=== PATIENT | female | born 1960 | race Caucasian/White ===

== ENCOUNTER 2024-07-17 20:12 | Emergency (ER) | payer BC, SELFPAY ==
[2024-07-17 20:14] VITALS: BP 152/82; PULSE 83; RESP 16; TEMP 36.6; O2SAT 100
--- OUTSIDE RECORDS SUMMARY | 2024-07-17 20:14 | XMS_ITS | Encounter Summary ---
Author Organization [facility] Address [address] [place] [address] Care Team Providers Care Claim Processing Specialist Name Role Phone Isaias Baugh MD Primary Care Provider [phone] Encounter Details Date Type Department Care Team (Latest Contact Info) Description 02/04/2006 Outpatient Historical HIS [facility] MIGEL Lockhart, Sher Brown MD NO ADDRESS ON FILE Screening Mammogram for High-Risk Patient (Primary Dx) Social History Tobacco Use Types Packs/Day Years Used Date Smoking Tobacco: Never Assessed Comments Unknown Sex and Gender Information Value Date Recorded Sex Assigned at Not on file Legal Sex Female 5:06 AM SPINNER CONCRETE PIPE Gender Identity Not on file Sexual Orientation Not on file documented as of this encounter Plan of Treatment Upcoming Encounters Date Type Department Care Team (Late st Contact Info) Description 04/07/2025 9:20 AM SPINNER CONCRETE PIPE Office Visit [facility] Primary Care [address] [place] [address] [place] [address] [address] documented as of this encounter Visit Diagnoses Diagnosis Screening mammogram for high-risk patient- Primary documented in this encounter Care Teams Claim Processing Specialist Relationship Specialty Start Date End Date Isaias Baugh MD PCP - General Internal Medicine 08/16/14 documented as of this encounter
--- OUTSIDE RECORDS SUMMARY | 2024-07-17 20:14 | XMS_ITS | Encounter Summary ---
Author Organization [facility] Address [address] [place] [address] Care Team Providers Care Pot Puller Name Role Phone Isaias Baugh MD Primary Care Provider [phone] Encounter Details Date Type Department Care Team (Late st Contact Info) Description 11/18/2004 Outpatient Historical [facility] LABORATORY CHEMIST - [facility] [address] [employer] [facility] [employer] [facility] [address] [place] [address] Jose Mercer MD [address] [place], [place] [id number] Social History Tobacco Use Types Packs/Day Years Used Date Smoking Tobacco: Never Assessed Comments Unknown Sex and Gender Information Value Date Recorded Sex Assigned at Not on file Legal Sex Female 5:06 AM MICROSYSTEMS ENGINEER Gender Identity Not on file Sexual Orientation Not on file documented as of this encounter Plan of Treatment Upcoming Encounters Date Type Department Care Team (Late st Contact Info) Description 04/07/2025 9:20 AM MICROSYSTEMS ENGINEER Office Visit [facility] Primary Care [facility] [address] [facility] [address] [place] [address] [place] [address] [facility] [address] [place], [place] [address] documented as of this encounter Visit Diagnoses Not on filedocumented in this encounter Care Teams Pot Puller Relationship Specialty Start Date End Date Isaias Baugh MD PCP - General Internal Medicine 08/16/14 documented as of this encounter
--- OUTSIDE RECORDS SUMMARY | 2024-07-17 20:14 | XMS_ITS | Encounter Summary ---
Author Organization [facility] Address [address] [place] [address] Care Team Providers Care Mental Health Advanced Practice Nurse Name Role Phone Isaias Baugh MD Primary Care Provider [phone] Encounter Details Date Type Department Care Team (Late st Contact Info) Description 03/16/1998 Outpatient Historical [facility] [address] [facility] [address] [place] [address] Sher Lockhart MD NO ADDRESS ON FILE Social History Tobacco Use Types Packs/Day Years Used Date Smoking Tobacco: Never Assessed Comments Unknown Sex and Gender Information Value Date Recorded Sex Assigned at Not on file Legal Sex Female 5:06 AM [facility]IAL [facility] Gender Identity Not on file Sexual Orientation Not on file documented as of this encounter Plan of Treatment Upcoming Encounters Date Type Department Care Team (Late st Contact Info) Description 04/07/2025 9:20 AM MEMORIAL [facility]ON Office Visit [facility] [address] [facility] [address] [place] [address] [place] [address] [facility] [address] [place] [address] documented as of this encounter Visit Diagnoses Not on filedocumented in this encounter Care Teams Mental Health Advanced Practice Nurse Relationship Specialty Start Date End Date Isaias Baugh MD PCP - General Internal Medicine 08/16/14 documented as of this encounter
--- OUTSIDE RECORDS SUMMARY | 2024-07-17 20:14 | XMS_ITS | Encounter Summary ---
Author Organization [facility] Address [address] [place] [address] Care Team Providers Care Groundman/Lineman Name Role Phone Isaias Baugh MD Primary Care Provider [phone] Encounter Details Date Type Department Care Team (Late st Contact Info) Description 03/08/1999 Outpatient Historical [facility] [address] [facility] [address] [place] [address] Sher Lockhart MD NO ADDRESS ON FILE Social History Tobacco Use Types Packs/Day Years Used Date Smoking Tobacco: Never Assessed Comments Unknown Sex and Gender Information Value Date Recorded Sex Assigned at Not on file Legal Sex Female 5:06 AM METHANE GAS COLLECTION SYSTEM OPERATOR Gender Identity Not on file Sexual Orientation Not on file documented as of this encounter Plan of Treatment Upcoming Encounters Date Type Department Care Team (Late st Contact Info) Description 04/07/2025 9:20 AM METHANE GAS COLLECTION SYSTEM OPERATOR Office Visit [facility] [address] [facility] [address] [place] [address] [place] [address] [facility] [address] [place] [address] documented as of this encounter Visit Diagnoses Not on filedocumented in this encounter Care Teams Groundman/Lineman Relationship Specialty Start Date End Date Isaias Baugh MD PCP - General Internal Medicine 08/16/14 documented as of this encounter
--- OUTSIDE RECORDS SUMMARY | 2024-07-17 20:15 | XMS_ITS | Encounter Summary ---
Author Organization [facility] Address [address] [place] [address] Care Team Providers Care Director Of Field Coordination Name Role Phone Isaias Baugh MD Primary Care Provider [phone] Encounter Details Date Type Department Care Team (Latest Contact Info) Description 09/24/2000 Outpatient Historical HIS [facility] MIGEL Lockhart, Sher Brown MD NO ADDRESS ON FILE Lump or mass in breast (Primary Dx) Social History Tobacco Use Types Packs/Day Years Used Date Smoking Tobacco: Never Assessed Comments Unknown Sex and Gender Information Value Date Recorded Sex Assigned at Not on file Legal Sex Female 5:06 AM CARE AIDE Gender Identity Not on file Sexual Orientation Not on file documented as of this encounter Plan of Treatment Upcoming Encounters Date Type Department Care Team (Late st Contact Info) Description 04/07/2025 9:20 AM CARE AIDE Office Visit [facility] Primary Care [address] [place] [address] [place] [address] [address] documented as of this encounter Visit Diagnoses Diagnosis Lump or mass in breast- Primary documented in this encounter Care Teams Director Of Field Coordination Relationship Specialty Start Date End Date Isaias Baugh MD PCP - General Internal Medicine 08/16/14 documented as of this encounter
--- OUTSIDE RECORDS SUMMARY | 2024-07-17 20:15 | XMS_ITS | Encounter Summary ---
Author Organization [facility] Address [address] [place] [address] Care Team Providers Care Gun Stock Maker Name Role Phone Isaias Baugh MD Primary Care Provider [phone] Encounter Details Date Type Department Care Team (Latest Contact Info) Description 01/22/2004 Outpatient Historical [facility] Ish Saavedra MD [address] [facility] [address] [address] DIFFUS CYSTIC MASTOPATHY (Primary Dx) Social History Tobacco Use Types Packs/Day Years Used Date Smoking Tobacco: Never Assessed Comments Unknown Sex and Gender Information Value Date Recorded Sex Assigned at Not on file Legal Sex Female 5:06 AM EXECUTIVE BUSINESS COACH Gender Identity Not on file Sexual Orientation Not on file documented as of this encounter Plan of Treatment Upcoming Encounters Date Type Department Care Team (Late st Contact Info) Description 04/07/2025 9:20 AM EXECUTIVE BUSINESS COACH Office Visit [facility] Primary Care [address] [place] [address] [place] [address] [facility] [address] [place] [address] documented as of this encounter Visit Diagnoses Diagnosis Diffuse cystic mastopathy- Primary documented in this encounter Care Teams Gun Stock Maker Relationship Specialty Start Date End Date Isaias Baugh MD PCP - General Internal Medicine 08/16/14 documented as of this encounter
--- OUTSIDE RECORDS SUMMARY | 2024-07-17 20:15 | XMS_ITS | Encounter Summary ---
Author Organization [facility] Address [address] [place] [address] Care Team Providers Care Public Speaking Instructor Name Role Phone Isaias Baugh MD Primary Care Provider [phone] Encounter Details Date Type Department Care Team (Latest Contact Info) Description 10/01/2000 Inpatient Historical HIS [facility] Tim Phillips MD NO ADDRESS ON FILE Nithya Rome MD NO ADDRESS ON FILE Diffuse cystic mastopathy (Primary Dx) Social History Tobacco Use Types Packs/Day Years Used Date Smoking Tobacco: Never Assessed Comments Unknown Sex and Gender Information Value Date Recorded Sex Assigned at Not on file Legal Sex Female 5:06 AM SUPERVISOR PULLET FARM Gender Identity Not on file Sexual Orientation Not on file documented as of this encounter Plan of Treatment Upcoming Encounters Date Type Department Care Team (Late st Contact Info) Description 04/07/2025 9:20 AM SUPERVISOR PULLET FARM Office Visit [facility] Primary Care [address] [place] [address] [place] [address] [address] documented as of this encounter Visit Diagnoses Diagnosis Diffuse cystic mastopathy- Primary documented in this encounter Care Teams Public Speaking Instructor Relationship Specialty Start Date End Date Isaias Baugh MD PCP - General Internal Medicine 08/16/14 documented as of this encounter
--- OUTSIDE RECORDS SUMMARY | 2024-07-17 20:15 | XMS_ITS | Encounter Summary ---
Author Organization [facility] Address [address] [place] [address] Care Team Providers Care Playroom Attendant Name Role Phone Isaias Baugh MD Primary Care Provider [phone] Encounter Details Date Type Department Care Team (Late st Contact Info) Description 09/16/2000 Outpatient Historical [facility] [address] [facility] [address] [place] [address] Sher Lockhart MD NO ADDRESS ON FILE Social History Tobacco Use Types Packs/Day Years Used Date Smoking Tobacco: Never Assessed Comments Unknown Sex and Gender Information Value Date Recorded Sex Assigned at Not on file Legal Sex Female 5:06 AM WOOD PREPARATION SUPERVISOR Gender Identity Not on file Sexual Orientation Not on file documented as of this encounter Plan of Treatment Upcoming Encounters Date Type Department Care Team (Late st Contact Info) Description 04/07/2025 9:20 AM WOOD PREPARATION SUPERVISOR Office Visit [facility] [address] [facility] [address] [place] [address] [place] [address] [facility] [address] [place] [address] documented as of this encounter Visit Diagnoses Not on filedocumented in this encounter Care Teams Playroom Attendant Relationship Specialty Start Date End Date Isaias Baugh MD PCP - General Internal Medicine 08/16/14 documented as of this encounter
--- OUTSIDE RECORDS SUMMARY | 2024-07-17 20:15 | XMS_ITS | Encounter Summary ---
Author Organization [facility] Address [address] [place] [address] Care Team Providers Care Carpenter Helper Name Role Phone Isaias Baugh MD Primary Care Provider [phone] Encounter Details Date Type Department Care Team (Late st Contact Info) Description 12/06/2002 Outpatient Historical [facility] - [place] [address] [place] [address] Sher Lockhart MD NO ADDRESS ON FILE Social History Tobacco Use Types Packs/Day Years Used Date Smoking Tobacco: Never Assessed Comments Unknown Sex and Gender Information Value Date Recorded Sex Assigned at Not on file Legal Sex Female 5:06 AM WARRANTY COORDINATOR Gender Identity Not on file Sexual Orientation Not on file documented as of this encounter Plan of Treatment Upcoming Encounters Date Type Department Care Team (Late st Contact Info) Description 04/07/2025 9:20 AM WARRANTY COORDINATOR Office Visit [facility] Primary Care [address] [place] [address] [place] [address] [address] documented as of this encounter Visit Diagnoses Not on filedocumented in this encounter Care Teams Carpenter Helper Relationship Specialty Start Date End Date Isaias Baugh MD PCP - General Internal Medicine 08/16/14 documented as of this encounter
--- OUTSIDE RECORDS SUMMARY | 2024-07-17 20:15 | XMS_ITS | Encounter Summary ---
Author Organization [facility] Address [address] [place] [address] Care Team Providers Care Die Repairer Stamping Name Role Phone Isaias Baugh MD Primary Care Provider [phone] Encounter Details Date Type Department Care Team (Late st Contact Info) Description 08/14/2003 Outpatient Historical [facility] CONTROL AREA OPERATOR - [facility] [address] [facility] [address] [place] [address] Jose Mercer MD [address] [place], [place] [address] Social History Tobacco Use Types Packs/Day Years Used Date Smoking Tobacco: Never Assessed Comments Unknown Sex and Gender Information Value Date Recorded Sex Assigned at Not on file Legal Sex Female 5:06 AM TRANSFORMER TESTER Gender Identity Not on file Sexual Orientation Not on file documented as of this encounter Plan of Treatment Upcoming Encounters Date Type Department Care Team (Late st Contact Info) Description 04/07/2025 9:20 AM TRANSFORMER TESTER Office Visit [facility] Primary Care [facility] [address] [facility] [address] [place] [address] [place] [address] [facility] [address] [place], [place] [address] documented as of this encounter Visit Diagnoses Not on filedocumented in this encounter Care Teams Die Repairer Stamping Relationship Specialty Start Date End Date Isaias Baugh MD PCP - General Internal Medicine 08/16/14 documented as of this encounter
--- OUTSIDE RECORDS SUMMARY | 2024-07-17 20:15 | XMS_ITS | Encounter Summary ---
Author Organization [facility] Address [address] [place] [address] Care Team Providers Care Information Lead Name Role Phone Isaias Baugh MD Primary Care Provider [phone] Encounter Details Date Type Department Care Team (Late st Contact Info) Description 12/06/2002 Outpatient Historical [facility] Internal Medicine - [place] [address] [place] [address] Sher Lockhart MD NO ADDRESS ON FILE Social History Tobacco Use Types Packs/Day Years Used Date Smoking Tobacco: Never Assessed Comments Unknown Sex and Gender Information Value Date Recorded Sex Assigned at Not on file Legal Sex Female 5:06 AM BLINDSTITCH LAPEL PADDER Gender Identity Not on file Sexual Orientation Not on file documented as of this encounter Plan of Treatment Upcoming Encounters Date Type Department Care Team (Late st Contact Info) Description 04/07/2025 9:20 AM BLINDSTITCH LAPEL PADDER Office Visit [facility] Primary Care [address] [place] [address] [place] [address] [address] documented as of this encounter Visit Diagnoses Not on filedocumented in this encounter Care Teams Information Lead Relationship Specialty Start Date End Date Isaias Baugh MD PCP - General Internal Medicine 08/16/14 documented as of this encounter
--- OUTSIDE RECORDS SUMMARY | 2024-07-17 20:15 | XMS_ITS | Encounter Summary ---
Author Organization [facility] Address [address] [place] [address] Care Team Providers Care Youtuber Name Role Phone Isaias Baugh MD Primary Care Provider [phone] Encounter Details Date Type Department Care Team (Late st Contact Info) Description 12/23/2000 Outpatient Historical [facility] [address] [facility] [address] [place] [address] Sher Lockhart MD NO ADDRESS ON FILE Social History Tobacco Use Types Packs/Day Years Used Date Smoking Tobacco: Never Assessed Comments Unknown Sex and Gender Information Value Date Recorded Sex Assigned at Not on file Legal Sex Female 5:06 AM SFDC ARCHITECT Gender Identity Not on file Sexual Orientation Not on file documented as of this encounter Plan of Treatment Upcoming Encounters Date Type Department Care Team (Late st Contact Info) Description 04/07/2025 9:20 AM SFDC ARCHITECT Office Visit [facility] [address] [facility] [address] [place] [address] [place] [address] [facility] [address] [place] [address] documented as of this encounter Visit Diagnoses Not on filedocumented in this encounter Care Teams Youtuber Relationship Specialty Start Date End Date Isaias Baugh MD PCP - General Internal Medicine 08/16/14 documented as of this encounter
--- OUTSIDE RECORDS SUMMARY | 2024-07-17 20:15 | XMS_ITS | Encounter Summary ---
Author Organization [facility] Address [address] [place] [address] Care Team Providers Care Binder Cutter Name Role Phone Isaias Baugh MD Primary Care Provider [phone] Encounter Details Date Type Department Care Team (Latest Contact Info) Description 08/15/2008 Outpatient Historical HIS [facility] Rose Lockhart MD NO ADDRESS ON FILE Other Screening Mammogram Social History Tobacco Use Types Packs/Day Years Used Date Smoking Tobacco: Never Assessed Comments Unknown Sex and Gender Information Value Date Recorded Sex Assigned at Not on file Legal Sex Female 5:06 AM LACQUER SPRAYER Gender Identity Not on file Sexual Orientation Not on file documented as of this encounter Plan of Treatment Upcoming Encounters Date Type Department Care Team (Late st Contact Info) Description 04/07/2025 9:20 AM LACQUER SPRAYER Office Visit [facility] Primary Care [address] [place] [address] [place] [address] [address] documented as of this encounter Procedures Procedure Name Priority Date/Time Associated Diagnosis Comments MAMMO SCREEN BILAT W OR WO CAD Routine 08/15/2008 11:12 AM CDT documented in this encounter Results * MAMMO DIGITAL SCREEN BILAT (08/15/2008 11:12 AM CDT) Anatomical Region Laterality Modality Breast Bilateral Other 08/15/2008 11:1 2 AM CDT Narrative 08/18/2008 5:18 PM CDT [place] [address] [address] [place], [place] [address] Admit Date: 08/15/2008 RAY VIRK Sex: F Admit Prov: ROSE LOCKHART Date: 1960 Primary Care Prov: ROSE LOCKHART CMRN: [id number] [id number] [facility] Ordering Prov: ROSE LOCKHART Accession Number: [id number] Interpretation BILATERAL FULL FIELD DIGITAL SCREENING MAMMOGRAM WITH CAD. History: Routine Screening. Technique: Full field digital craniocaudal and mediolateral oblique projections of both breasts were obtained. Computer aided diagnosis was performed. Comparison: 07/2007, 01/2006, 12/2003 Breast Parenchymal Composition: Heterogeneously dense, which lowers the sensitivity of mammography. Findings: No suspicious mass, suspicious microcalcifications, or architectural distortion in either breast is identified. Since the prior study, there has been no significant interval change. The computer aided diagnosis detects no significant abnormality. Overall Assessment: BI-RADS category 1: Negative. IMPRESSION: Annual mammography is recommended. Assessment BIRADS: 1-Negative Recommendation: Normal interval follow-up Dictated by: LUANA HAYNES Electronically signed by: LUANA HAYNES 08/18/2008 17:17 Transcribed: 08/18/2008 15:19 AMK Procedure Note Luana Haynes - 08/18/2008 [place] [address] [place], [place] [address] Admit Date: 08/15/2008 RAY VIRK Sex: F Admit Prov: ROSE LOCKHART Date: 1960 Primary Care Prov: ROSE LOCKHART CMRN: [id number] [id number] IM[facility]ING SERVICES Ordering Prov: ROSE LOCKHART Interpretation BILATERAL FULL FIELD DIGITAL SCREENING MAMMOGRAM WITH CAD. History: Routine Screening. Technique: Full field digital craniocaudal and mediolateral oblique projections of both breasts were obtained. Computer aided diagnosiswas performed. Comparison: 07/2007, 01/2006, 12/2003 Breast Parenchymal Composition: Heterogeneously dense, which lowersthe sensitivity of mammography. Findings: No suspicious mass, suspicious microcalcifications, or architectural distortion in either breast is identified. Since theprior study, there has been no significant interval change. The computeraided diagnosis detects no significant abnormality. Overall Assessment: BI-RADS category 1: Negative. IMPRESSION: Annual mammography is recommended. Assessment BIRADS: 1-Negative Recommendation: Normal interval follow-up Dictated by: LUANA HAYNES Electronically signed by: LUANA HAYNES 08/18/2008 17:17 Transcribed: 08/18/2008 15:19 AMK Rose Lockhart MD MAMMO ORDERABLES Final Result documented in this encounter Visit Diagnoses Diagnosis Other screening mammogram documented in this encounter Care Teams Binder Cutter Relationship Specialty Start Date End Date Isaias Baugh MD PCP - General Internal Medicine 08/16/14 documented as of this encounter
--- OUTSIDE RECORDS SUMMARY | 2024-07-17 20:15 | XMS_ITS | Encounter Summary ---
Author Organization [facility] Address [address] [place] [address] Care Team Providers Care Tariff Expert Name Role Phone Isaias Baugh MD Primary Care Provider [phone] Encounter Details Date Type Department Care Team (Latest Contact Info) Description 12/24/2002 Outpatient Historical HIS [facility] MIGEL Lockhart, Sher Brown MD NO ADDRESS ON FILE SCREENING MAMM-MALIG NEOPL-HI RISK (Primary Dx) Social History Tobacco Use Types Packs/Day Years Used Date Smoking Tobacco: Never Assessed Comments Unknown Sex and Gender Information Value Date Recorded Sex Assigned at Not on file Legal Sex Female 5:06 AM STRUCTURAL WELDER Gender Identity Not on file Sexual Orientation Not on file documented as of this encounter Plan of Treatment Upcoming Encounters Date Type Department Care Team (Late st Contact Info) Description 04/07/2025 9:20 AM STRUCTURAL WELDER Office Visit [facility] Primary Care [address] [place] [address] [place] [address] [address] documented as of this encounter Visit Diagnoses Diagnosis Screening mammogram for high-risk patient- Primary documented in this encounter Care Teams Tariff Expert Relationship Specialty Start Date End Date Isaias Baugh MD PCP - General Internal Medicine 08/16/14 documented as of this encounter
--- OUTSIDE RECORDS SUMMARY | 2024-07-17 20:15 | XMS_ITS | Encounter Summary ---
Author Organization [facility] Address [address] [place] [address] Care Team Providers Care Orthotics Assistant Name Role Phone Isaias Baugh MD Primary Care Provider [phone] Encounter Details Date Type Department Care Team (Latest Contact Info) Description 12/30/2003 Outpatient Historical [facility] MIGEL Lockhart, Sher Brown MD NO ADDRESS ON FILE SCREENING MAMM-MAILG NEOPL-OTHER (Primary Dx) Social History Tobacco Use Types Packs/Day Years Used Date Smoking Tobacco: Never Assessed Comments Unknown Sex and Gender Information Value Date Recorded Sex Assigned at Not on file Legal Sex Female 5:06 AM WIRE ROLLER Gender Identity Not on file Sexual Orientation Not on file documented as of this encounter Plan of Treatment Upcoming Encounters Date Type Department Care Team (Late st Contact Info) Description 04/07/2025 9:20 AM WIRE ROLLER Office Visit [facility] Primary Care [address] [place] [address] [place] [address] [address] documented as of this encounter Visit Diagnoses Diagnosis Other screening mammogram- Primary documented in this encounter Care Teams Orthotics Assistant Relationship Specialty Start Date End Date Isaias Baugh MD PCP - General Internal Medicine 08/16/14 documented as of this encounter
--- OUTSIDE RECORDS SUMMARY | 2024-07-17 20:15 | XMS_ITS | Encounter Summary ---
Author Organization [facility] Address 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 Gender Identity Not on file Sexual Orientation Not on file documented as of this encounter Plan of Treatment Upcoming Encounters Date Type Department Care Team (Late st Contact Info) Description 04/07/2025 9:20 AM SENIOR GRAPHIC DESIGNER Office Visit [facility] Primary Care [address] [place] [address] [place] [address] [address] documented as of this encounter Procedures Procedure Name Priority Date/Time Associated Diagnosis Comments MAMMO SCREEN BILAT W OR WO CAD Routine 07/28/2007 1:36 PM CDT documented in this encounter Results * MAMMO DIGITAL SCREEN BILAT (07/28/2007 1:36 PM CDT) Anatomical Region Laterality Modality Breast Bilateral Other 07/28/2007 1:36 PM CDT Narrative 07/29/2007 8:36 PM CDT [address] [address] Admit Date: 07/28/2007 RAY VIRK Sex: F Admit Prov: ROSE LOCKHART Date: 1960 Primary Care Prov: ROSE LOCKHART CMRN: [id number] [id number] [facility]ING SERVICES Ordering Prov: ROSE LOCKHART Accession Number: [id number] Interpretation BILATERAL SCREENING DIGITAL MAMMOGRAMS WITH COMPUTER ASSISTED DIAGNOSIS 07/28/07 Findings: The parenchyma is moderately dense bilaterally. There is no mass, malignant calcification, lymphadenopathy or other sign of malignancy. No change since 01/2006. The films were reviewed using the CAD system. Summary: No mammographic evidence of malignancy. Assessment BIRADS: 1-Negative Recommendation: Normal interval follow-up Dictated by: TIM ZAMARRIPA Electronically signed by: TIM ZAMARRIPA 07/29/2007 20:36 Transcribed: 07/29/2007 18:47 AMK Procedure Note Tim Zamarripa MD - 07/29/2007 [address] [place], [place] [address] Admit Date: 07/28/2007 RAY VIRK Sex: F Admit Prov: ROSE LOCKHART Date: 1960 Primary Care Prov: ROSE LOCKHART CMRN: [id number] [facility] [id number] IM[facility]ING SERVICES Ordering Prov: ROSE LOCKHART Interpretation BILATERAL SCREENING DIGITAL MAMMOGRAMS WITH COMPUTER ASSISTEDDIAGNOSIS 07/28/07 Findings: The parenchyma is moderately dense bilaterally. There isno mass, malignant calcification, lymphadenopathy or other sign ofmalignancy. No change since 01/2006. The films were reviewed using the CADsystem. Summary: No mammographic evidence of malignancy. Assessment BIRADS: 1-Negative Recommendation: Normal interval follow-up Dictated by: TIM ZAMARRIPA Electronically signed by: TIM ZAMARRIPA 07/29/2007 20:36 Transcribed: 07/29/2007 18:47 AMK Rose Lockhart MD MAMMO ORDERABLES Final Result documented in this encounter Visit Diagnoses Diagnosis Other screening mammogram documented in this encounter Care Teams Benzol Still Operator Relationship Specialty Start Date End Date Isaias Baugh MD PCP - General Internal Medicine 08/16/14 documented as of this encounter
--- OUTSIDE RECORDS SUMMARY | 2024-07-17 20:15 | XMS_ITS | Encounter Summary ---
Author Organization [facility] Address 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 Gender Identity Not on file Sexual Orientation Not on file documented as of this encounter Plan of Treatment Upcoming Encounters Date Type Department Care Team (Late st Contact Info) Description 04/07/2025 9:20 AM TOOL AND DIE SUPERVISOR Office Visit [facility] Primary Care [address] [place] [address] [place] [address] [address] documented as of this encounter Visit Diagnoses Diagnosis Other screening mammogram- Primary documented in this encounter Care Teams Pharmacy District Manager Relationship Specialty Start Date End Date Isaias Baugh MD PCP - General Internal Medicine 08/16/14 documented as of this encounter
--- OUTSIDE RECORDS SUMMARY | 2024-07-17 20:15 | XMS_ITS | Encounter Summary ---
Author Organization [facility] Address [address] [place] [address] Care Team Providers Care Family Coach Name Role Phone Isaias Baugh MD Primary Care Provider [phone] Encounter Details Date Type Department Care Team (Late st Contact Info) Description 11/07/2004 Outpatient Historical [facility] Internal Medicine - [place] [address] [place] [address] Sher Lockhart MD NO ADDRESS ON FILE Social History Tobacco Use Types Packs/Day Years Used Date Smoking Tobacco: Never Assessed Comments Unknown Sex and Gender Information Value Date Recorded Sex Assigned at Not on file Legal Sex Female 5:06 AM MOVING 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 Gender Identity Not on file Sexual Orientation Not on file documented as of this encounter Last Filed Vital Signs Vital Sign Reading Time Taken Comments Blood Pressure 136/70 11/07/2004 1:20 PM CDT Pulse - - Temperature 37.1 C (98.8 F) 11/07/2004 1:20 PM CDT Respiratory Rate - - Oxygen Saturation - - Inhaled Oxygen Concentration - - Weight 84.4 kg (186 lb) 11/07/2004 1:20 PM CDT Height - - Body Mass Index - - documented in this encounter Plan of Treatment Upcoming Encounters Date Type Department Care Team (Late st Contact Info) Description 04/07/2025 9:20 AM MOVING PICTURE OPERATOR Office Visit [facility] Primary Care [address] [place] [address] [place] [address] [address] documented as of this encounter Visit Diagnoses Not on filedocumented in this encounter Care Teams Family Coach Relationship Specialty Start Date End Date Isaias Baugh MD PCP - General Internal Medicine 08/16/14 documented as of this encounter
--- OUTSIDE RECORDS SUMMARY | 2024-07-17 20:15 | XMS_ITS | Encounter Summary ---
Author Organization [facility] Address [address] [place] [address] Care Team Providers Care Replenisher Name Role Phone Isaias Baugh MD Primary Care Provider [phone] Encounter Details Date Type Department Care Team (Late st Contact Info) Description 04/30/2001 Outpatient Historical [facility] [address] [facility] [address] [place] [address] Sher Lockhart MD NO ADDRESS ON FILE Social History Tobacco Use Types Packs/Day Years Used Date Smoking Tobacco: Never Assessed Comments Unknown Sex and Gender Information Value Date Recorded Sex Assigned at Not on file Legal Sex Female 5:06 AM BLACKSMITH SUPERVISOR Gender Identity Not on file Sexual Orientation Not on file documented as of this encounter Plan of Treatment Upcoming Encounters Date Type Department Care Team (Late st Contact Info) Description 04/07/2025 9:20 AM BLACKSMITH SUPERVISOR Office Visit [facility] Care [facility] [address] [facility] [address] [place] [address] [place] [address] [facility] [address] [place] [address] documented as of this encounter Visit Diagnoses Not on filedocumented in this encounter Care Teams Replenisher Relationship Specialty Start Date End Date Isaias Baugh MD PCP - General Internal Medicine 08/16/14 documented as of this encounter
--- OUTSIDE RECORDS SUMMARY | 2024-07-17 20:15 | XMS_ITS | Encounter Summary ---
Author Organization [facility] Address [address] [place] [address] Care Team Providers Care Connection Worker Name Role Phone Isaias Bauhg MD Primary Care Provider [phone] Encounter Details Date Type Department Care Team (Late st Contact Info) Description 10/16/2000 Outpatient Historical [facility] [address] [facility] [address] [place] [address] Sher Lockhart MD NO ADDRESS ON FILE Social History Tobacco Use Types Packs/Day Years Used Date Smoking Tobacco: Never Assessed Comments Unknown Sex and Gender Information Value Date Recorded Sex Assigned at Not on file Legal Sex Female 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 Gender Identity Not on file Sexual Orientation Not on file documented as of this encounter Plan of Treatment Upcoming Encounters Date Type Department Care Team (Late st Contact Info) Description 04/07/2025 9:20 AM CHIEF 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 Office Visit [facility] [address] [facility] [address] [place] [phone] [place] [address] [facility] [address] [place] [address] documented as of this encounter Visit Diagnoses Not on filedocumented in this encounter Care Teams Connection Worker Relationship Specialty Start Date End Date Isaias Baugh MD PCP - General Internal Medicine 08/16/14 documented as of this encounter
--- OUTSIDE RECORDS SUMMARY | 2024-07-17 20:15 | XMS_ITS | Encounter Summary ---
Author Organization [facility] Address [address] [place] [address] Care Team Providers Care Rig Manager Name Role Phone Isaias Baugh MD Primary Care Provider [phone] Encounter Details Date Type Department Care Team (Late st Contact Info) Description 06/04/1999 Outpatient Historical [facility] [address] [facility] [address] [place] [address] Sher Lockhart MD NO ADDRESS ON FILE Social History Tobacco Use Types Packs/Day Years Used Date Smoking Tobacco: Never Assessed Comments Unknown Sex and Gender Information Value Date Recorded Sex Assigned at Not on file Legal Sex Female 5: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 [address] [place] [address] [place] [address] [facility] [address] [place] [address] documented as of this encounter Visit Diagnoses Not on filedocumented in this encounter Care Teams Rig Manager Relationship Specialty Start Date End Date Isaias Baugh MD PCP - General Internal Medicine 08/16/14 documented as of this encounter
--- OUTSIDE RECORDS SUMMARY | 2024-07-17 20:15 | XMS_ITS | Clinical Summary ---
Author Organization [facility] eres Address [address] [place] [address] Care Team Providers Care Rn Recovery Name Role Phone Isaias Baugh MD Primary Care Provider [phone] Allergies Active Allergy Reactions Criticality Noted Date Comments Codeine Nausea and Vomiting Low 09/06/2014 Morphine Nausea and Vomiting Low 12/06/2002 Penicillins Diarrhea Low 12/06/2002 Wool Itching Low 05/23/2019 Medications 0mega-3 fatty acids-vitamin E (FISH OIL) 1,000 mg Oral Cap Take 1,000 mg by mouth daily. Active multivitamin (DAILY-VALDO) Oral Tab Take 1 Tab by mouth daily. Active Active Problems Patient Care Coordination No te Formatting of this note migh t be different from the original. OCCUPATIONAL THERAPY ASSISTANT->DR WATKINS ENDO->DR ROMANO GI->DR MORENO->DR SMITH Problem Noted Date Diagnosed Date Positive colorectal cancer screening using Colog uard test 02/15/2023 Subclinical hyperthyroidism 01/24/2016 Overview (02/02/2023): 01/10 TSH 0.12->- PLAN CONT'D MONITORING 03/12 FT4 NL PER OCCUPATIONAL THERAPY ASSISTANT 02/10 TSH 0.23->- PLAN CONT'D MONITORING 03/15 TSH 0.14 03/17 TSH 0.28 02/16 TSH 0.08 B12 deficiency 10/01/2014 Overview (03/01/2019): 10/09 B12 LOW-NL (335)->- PLAN CONT'D MONITORING 01/10 B12 LOW-NL (341)->- PLAN CONT'D MONITORING 03/15 B12 320 Screen for colon cancer 09/06/2014 Overview (04/07/2024): 03/09 CSCOPE NL->NEXT 03/19 02/16 COLOGUARD POS->ARR CSCOPE 03/19 CSCOPE NL X PLASTIC->NEXT Multiple thyroid nodules 09/06/2014 Overview (03/04/2021): ENDO (JUAN ANTONIO) MANAGING -- LAST OV 06/16 08/09 THYROID US->Overall, the appearance is similar to previous examination, 08/23/2013. 06/16 FNA BENIGN Varicose vein 09/06/2014 Overview (09/06/2014): 09/08 PT DECLINES VASC SURG AT THIS TIME Rosacea 01/14/2013 Overview (09/06/2014): DERM (MAR) MANAGING Resolved Problems Problem Noted Date Diagnosed Date Resolved Date Prediabetes 03/01/2019 02/02/2023 Overview (03/01/2021): FBS -- 03/15 102 -- 03/17 112 Impaired fasting blood sugar 01/24/2016 02/21/2017 Overview (02/21/2017): FBS -- 01/10 104 -- 02/10 99 A1C 02/10 4.9 Hyperlipidemia 10/01/2014 01/24/2016 Overview (01/24/2016): 10/09 TOTAL 162 - LDL 110 - HDL 35 - TG 85 01/10 [id number] Screening for diabetes mellitus 09/06/2014 10/01/2014 Overview (10/01/2014): 10/09 FBS NL Screening for endocrine, met abolic and immunity disorder 09/06/2014 10/01/2014 Overview (10/01/2014): 10/09 VIT D 25-OH NL (33) Screening for other and unsp ecified deficiency anemia 09/06/2014 10/01/2014 Overview (09/29/2014): 10/09 CBC NL Screening for nephropathy 09/06/2014 Overview (10/01/2014): GFR -- 10/09 >60 Acute nonsuppurative otitis media, unspecified 11/07/2004 12/26/2008 Anemia, unspecified 05/03/2003 12/27/19 09 Depressive disorder, not elsewhere classified 12/07/19 03 12/26/2008 Other and unspecified hyperlipidemia 12/06/2002 12/26/2008 Encounters Date Type Department Care Team Description 07/13/2024 External Device Data STL ABSTRACTION Provider, Abstract 07/05/2024 External Device Data STL ABSTRACTION Provider, Abstract 07/05/2024 External Device Data STL ABSTRACTION Provider, Abstract 07/04/2024 External Device Data STL ABSTRACTION Provider, Abstract 07/02/2024 External Device Data STL ABSTRACTION Provider, Abstract 07/01/2024 External Device Data STL ABSTRACTION Provider, Abstract 06/28/2024 External Device Data STL ABSTRACTION Provider, Abstract 06/14/2024 External Device Data STL ABSTRACTION Provider, Abstract 05/18/2024 External Device Data STL ABSTRACTION Provider, Abstract 05/17/2024 External Device Data STL ABSTRACTION Provider, Abstract 05/10/2024 External Device Data STL ABSTRACTION Provider, Abstract 05/03/2024 External Device Data STL ABSTRACTION Provider, Abstract from Last 3 Months Immunizations Immunization Administration Dates Next Due (ADACEL/BOOSTRIX)(10 YR UP) TDAP VACCINE, 0.5ML, IM 02/13/2010 (PFIZER)(12 YR UP) COVID-19 VACCINE - EMERGENCY USE AUTHORIZATION, MRNA, [id number](PF) 30 MCG/0.3 ML IM SUSP 09/19/2021,03/19/2021,05/03/2020,2019 (Pfizer Bivalent)(12 Yr Up) COVID-19 Vaccine - Emergency Use Authorization, MRNA, Lnp-S(Pf) 30 Mcg/0.3 Ml Susp 02/06/2022 INFLUENZA VACCINE QUADRIVALE NT 3 YR UP PF IM 01/30/2017 Influenza Seasonal Unspecifi ed Formulation IM 02/06/2021,03/10/2019,02/05/2018,2013 Family History Medical History Relation Name Comments Other Brother paranoid schizo phrenia Heart Disease Father Seizures Maternal Grandmother Breast Cancer Mother 75ish Celiac Disease Mother 75ish Heart Failure Mother 75ish Hypertension Mother 75ish Asthma Paternal Grandmother Hypertension Sister Cancer Neg Hx Colon Cancer Neg Hx Ovarian Cancer Neg Hx Relation Name Status Comments Brother Alive Father Maternal Grandfather Maternal Grandmother Mother 75ish Paternal Grandfather Paternal Grandmother Sister Alive Social History Tobacco Use Types Packs/Day Years Used Date Smoking Tobacco: Former Cigarettes 0.5 15 0 09/06/1977 - 09/06/1992 Passive Smoke Exposure: Never Smokeless Tobacco: Never Tobacco Cessation:Counseling Given: No Alcohol Use Standard Drinks/Week Comments No 0 (1 standard drink = 0.6 oz pur e alcohol) Feeling Safe Answer Date Recorded Are you in a relationship wi th someone who hurts you emotionally and/or physically? No 03/26/2023 Comments No Sex and Gender Information Value Date Recorded Sex Assigned at Not on file Legal Sex Female 5:06 AM BLACKING WHEEL TENDER Gender Identity Not on file Sexual Orientation Not on file Occupation Industry Job Start Date Job End Date Not on file Not on file Not on file Not on file Last Filed Vital Signs Vital Sign Reading Time Taken Comments Blood Pressure 137/76 04/07/2024 2:07 PM BLACKING WHEEL TENDER Pulse 74 04/07/2024 2:07 PM BLACKING WHEEL TENDER Temperature 36.3 C (97.4 F) 03/26/2023 9:11 AM BLACKING WHEEL TENDER Respiratory Rate 16 03/26/2023 9:21 AM BLACKING WHEEL TENDER Oxygen Saturation 99% 04/07/2024 2:07 PM BLACKING WHEEL TENDER Inhaled Oxygen Concentration - - Weight 76.2 kg (168 lb) 04/07/2024 2:07 PM BLACKING WHEEL TENDER Height 175.3 cm (5' 9 ) 04/07/2024 2:07 PM BLACKING WHEEL TENDER Body Mass Index 24.81 04/07/2024 2:07 PM BLACKING WHEEL TENDER Plan of Treatment Upcoming Encounters Date Type Department Care Team (Late st Contact Info) Description 04/07/2025 9:20 AM BLACKING WHEEL TENDER Office Visit [facility] [place] [id number] [place] [id number] [place] [address] [facility] [address] [place] [address] Health Maintenance Due Date Last Done Comments FIT/FOBT Q 1 year 2006 Flex Sig/CT Colonography Q 5 years 2006 ZOSTER VACCINE (1 of 2) 06/28/2011 DTAP/TDAP/TD VACCINES (2 - T d or Tdap) 02/14/2020 02/13/2010 HPV/Cotest 03/26/2021 03/26/2016, 02/28/2013 COVID-19 Vaccine (2023-2 5 season) 2023 02/06/2022, 09/19/2021, 03/19/2021, Additional history exists Preventative Visit- Commercial 04/27/2024 1 06/08/2023, 02/11/2023, 02/02/2023, Additional history exists BREAST CANCER SCREENING 03/22/2025 03/22/20 24, 03/17/2023, 03/13/2022, Additional history exists FIT-DNA Q 3 years 02/09/2026 02/09/2023 CERVICAL CANCER SCREENING 02/11/2026 PAP SMEAR 02/11/2026 02/11/2023, 04/27, 03/26/2016, Additional history exists PAP SMEAR 02/11/2026 02/11/2023, 04/27, 03/26/2016, Additional history exists COLORECTAL SCREENING 03/26/2033 03/26/2023, 03/26/2023, 03/10/2013, Additional history exists Colorectal Cancer Screening 03/26/2033 RSV VACCINE (60+ or ) (1 - 1-dose 75+ series) 2036 INFLUENZA VACCINE Completed 01/28/2024, , 02/05/2023, Additional history exists Procedures Procedure Name Priority Date/Time Associated Diagnosis Comments MAMMO 3D MAURICE SCREEN BILAT W OR WO CAD Routine 03/22/2024 8:23 AM BLACKING WHEEL TENDER Visit for screening mammogram COLONOSCOPY REPORT 03/26/2023 9: 10 AM BLACKING WHEEL TENDER CERV/VAG CYTO AGE BASED SCREEN PAP Routine 02/11/2023 2:20 PM CDT Screening for cervical cancer Encounter for gynecological examination without abnormal finding Well woman exam with routine gynecological exam COLON CANCER SCREEN, STOOL DNA Routine 02/09/2023 12:15 PM CDT Screen for colon cancer CERV/VAG CYTO SCREEN PAP RLFX HPV Routine 03/26/2016 2:02 PM BLACKING WHEEL TENDER Well woman exam with routine gynecological exam from Last 3 Months or Most Recently Relevant to Health Maintenance Results * MAMMO 3D MAURICE SCREEN BILAT W OR WO CAD (03/22/2024 8:23 AM BLACKING WHEEL TENDER) Anatomical Region Laterality Modality Breast Bilateral Mammography 03/22/2024 8:23 AM BLACKING WHEEL TENDER Impressions 03/22/2024 8:55 AM BLACKING WHEEL TENDER IMPRESSION: No mammographic evidence of malignancy in the bilateral breasts. Routine screening mammography is recommended in one year. OVERALL FINAL ASSESSMENT: BI-RADS CATEGORY 1 - Negative DICTATION LOCATION: [facility] Narrative 03/22/2024 8:55 AM BLACKING WHEEL TENDER EXAMINATION: BILATERAL SCREENING DIGITAL MAMMOGRAPHY WITH TOMOSYNTHESIS AND CAD DATE: 03/22/2024 8:23 AM HISTORY: Routine screening mammography. COMPARISON: Mammography with dates ranging from 03/17/2023 to 02/25/2019. TECHNIQUE: A bilateral screening mammogram was performed. Low-dose full-field digital breast tomosynthesis examination was performed with 2D and 3D acquisitions. Examination is read in conjunction with computer aided detection. BREAST COMPOSITION: There are scattered areas of fibroglandular density. FINDINGS: There are no suspicious masses, suspicious calcifications, or other suspicious findings in either breast. There has been no suspicious interval change. Computer aided detection was used in the interpretation of this examination. Procedure Note Chung Musa MD - 03/22/2024 EXAMINATION: BILATERAL SCREENING DIGITAL MAMMOGRAPHY WITH TOMOSYNTHESIS AND CAD DATE: 03/22/2024 8:23 AM HISTORY: Routine screening mammography. COMPARISON: Mammography with dates ranging from 03/17/2023 to 02/25/2019. TECHNIQUE: A bilateral screening mammogram was performed. Low-dose full-field digital breast tomosynthesis examination was performed with 2D and 3D acquisitions. Examination is read in conjunction with computer aided detection. BREAST COMPOSITION: There are scattered areas of fibroglandular density. FINDINGS: There are no suspicious masses, suspicious calcifications, or other suspicious findings in either breast. There has been no suspicious interval change. Computer aided detection was used in the interpretation of this examination. IMPRESSION: No mammographic evidence of malignancy in the bilateral breasts. Routine screening mammography is recommended in one year. OVERALL FINAL ASSESSMENT: BI-RADS CATEGORY 1 - Negative DICTATION LOCATION: [facility] us Kiel Watkins MD MAMMO ORDERABLES Final Result * COLONOSCOPY REPORT (03/26/2023 9:10 AM BLACKING WHEEL TENDER) Narrative Procedure Note Marianne Smith MD - 03/26/2023 9:10 AM CST [facility] Endoscopy Patient Name: Rosie Oropeza Procedure Date: 03/26/2023 Date of : 1960 Age: 62 Attending MD: Marianne Smith MD, Procedure: Colonoscopy Indications: Positive Cologuard test Providers: Marianne Smith MD Referring MD: Isaias Baugh MD Medicines: Monitored Anesthesia Care Procedure: Informed consent was obtained for the procedure, including moderate sedation after risks were discussed. Based on the pre-procedure assessment, including review of the patient's medical history, medications, allergies, and review of systems, the patient was deemed to be an appropriate candidate for sedation. A timeout was performed. Continuous ECG monitoring, pulse oximetry, blood pressure monitoring, and direct observation were performed. The Colonoscope was introduced through the anus and advanced to the terminal ileum. The colonoscopy was performed without difficulty. The patient tolerated the procedure well. The quality of the bowel preparation was good. The terminal ileum, ileocecal valve, appendiceal orifice, and rectum were photographed. Estimated Blood Loss: Estimated blood loss was minimal. Findings: The perianal and digital rectal examinations were normal. The terminal ileum appeared normal. A 6 mm polyp was found in the rectum. The polyp was sessile. The polyp was removed with a cold snare. Resection and retrieval were complete. Two sessile polyps were found in the rectum. The polyps were 3 to 4 mm in size. These polyps were removed with a cold biopsy forceps. Resection and retrieval were complete. The exam was otherwise without abnormality on direct and retroflexion views. Complications: No immediate complications. Impression: - The examined portion of the ileum was normal. - One 6 mm polyp in the rectum, removed with a cold snare. Resected and retrieved. - Two 3 to 4 mm polyps in the rectum, removed with a cold biopsy forceps. Resected and retrieved. - The examination was otherwise normal on direct and retroflexion views. Recommendation: - Patient has a contact number available for emergencies. The signs and symptoms of potential delayed complications were discussed with the patient. Return to normal activities tomorrow. Written discharge instructions were provided to the patient. - Resume previous diet. - Continue present medications. - Await pathology results. - Repeat colonoscopy in 3 years (if adenomatous) for surveillance based on pathology results. Marianne Smith MD 03/26/2023 9:10:04 AM This report has been signed electronically. Number of Addenda: 0 Procedure Date: 03/26/2023 8:35:[id number] [place] [address] Marianne Smith MD GI PROCEDURE ORDERABLES F inal Result * CERV/VAG CYTO AGE BASED SCREEN PAP (02/11/2023 2:20 PM CDT) COMMENT (PAP): [facility] [place] [facility] Comment: This order for age-based cervical cancer and STI screening follows ACOG guidelines(PB 168, 140, JGC700). See individual assays for performing site location. CLINICAL INFORMATION [facility] Comment:None given LAST MENSTRUAL PERIOD [facility] [place] [facility] Comment:NONE GIVEN PREV PAP: [facility] [place] [facility] Comment:NONE GIVEN PREV BX: [facility] [place] Comment:NONE GIVEN SOURCE [facility] [place] Comment:Endocervix ADEQUACY: [facility] [place] [facility] Comment:SATISFACTORY FOR KASANDRA LUATION PAP INTERP [facility] [place] [facility] Comment: Cytology Results: Negative for intraepithelial lesion or malignancy. Atrophic pattern; predominantly parabasal cells COMMENT (PAP TEST) [facility] Comment: This Pap test has been evaluated with computer assisted technology. CREDIT CASHIER: [place] Comment: TMK, CT(ASCP) CT screening location: [place] [address] [place] [address] EXPLANATORY NOTE [facility] Comment: EXPLANATORY NOTE: The Pap is a screening test for cervical cancer. It is not a diagnostic test and is subject to false negative and false positive results. It is most reliable when a satisfactory sample, regularly obtained, is submitted with relevant clinical findings and history, and when the Pap result is evaluated along with historic and current clinical information. HPV E6/E7 Not Detected Not Detected [facility] [place] Comment: Methodology: Press Room Supervisor-Mediated Amplification This assay detects E6/E7 viral messenger RNA (mRNA) from 14 high-risk HPV types (16,18,31,33,35,39,45,51,52,56,58,59,66,68). Cervical sources are required for HPV testing. If a vaginal source from a patient who has had a total hysterectomy with removal of cervix was submitted, please contact the testing laboratory for alternative testing options. For additional information, please refer to http://education.P2i/faq/KKZ784l0 (This link if provided for information/ educational purposes only.) Test Performed at: [facility] [address] [place] [address] Theresa SANTANA Genital SWAB OF ENDOCERVIX / Unknown 02/11/2023 2:20 PM CDT 02/12/2023 3:27 AM CDT Kiel Watkisn MD PATHOLOGY/CYTOLOGY ORDERABLES Final Result [facility] [phone] [facility] [address] [place] [address] * (ABNORMAL) COLON CANCER SCREEN, STOOL DNA (02/09/2023 12:15 PM CDT) COLOGUARD RESULT Positive( A) Negative [facility] Comment: POSITIVE TEST RESULT. A positive Cologuard result should be followed with a colonoscopy or visual examination of the colon. The normal value (reference range) for this assay is negative. TEST DESCRIPTION: Composite algorithmic analysis of stool DNA-biomarkers with hemoglobin immunoassay. Quantitative values of individual biomarkers are not reportable and are not associated with individual biomarker result reference ranges. Cologuard is intended for colorectal cancer screening of adults of either sex, 45 years or older, who are at average-risk for colorectal cancer (CRC). Cologuard has been approved for use by the U.S. FDA. The performance of Cologuard was established in a cross sectional study of average-risk adults aged 50-84. Cologuard performance in patients ages 45 to 49 years was estimated by sub-group analysis of near-age groups. Colonoscopies performed for a positive result may find as the most clinically significant lesion: colorectal cancer [4.0%], advanced adenoma (including sessile serrated polyps greater than or equal to 1cm diameter) [20%] or non- advanced adenoma [31%]; or no colorectal neoplasia [45%]. These estimates are derived from a prospective cross-sectional screening study of 10,000 individuals at average risk for colorectal cancer who were screened with both Cologuard and colonoscopy. (Savita Swan al, N Engl J Med 2014;370(14):9473-6101.) Cologuard may produce a false negative or false positive result (no colorectal cancer or precancerous polyp present at colonoscopy follow up). A negative Cologuard test result does not guarantee the absence of CRC or advanced adenoma (pre-cancer). The current Cologuard screening interval is every 3 years. ([employer] Cancer Society and U.S. Multi-Society Task Force). Cologuard performance data in a 10,000 patient pivotal study using colonoscopy as the reference method can be accessed at the following location: www.Aupix.[employer]/results. Additional description of the Cologuard test process, warnings and precautions can be found at www.Wimdurd.com. Stool STOOL SPECIMEN / Unknown 02/09/2023:15 PM CDT 02/10/2023 4:04 PM CDT Isaias Baugh MD BODY FLUIDS AND STOOLS Final Result [facility] CLIA # [id number] [address] , [address] [place] [address] * CERV/VAG CYTOPATH, THIN PREP IMAGR RFLX HPV (03/26/2016 2:02 PM BLACKING WHEEL TENDER) CLINICAL INFORMATION SEE COMMENT 04/02/2016 12:37 PM BLACKING WHEEL TENDER [facility] Comment: Information not provided SCREENING LAST MENSTRUAL PERIOD SEE COMMENT 04/02/2016 12:37 PM BLACKING WHEEL TENDER [facility] Comment:INFORMATION NOT PROV IDED PREV PAP: SEE COMMENT 04/02/2016 12:37 PM BLACKING WHEEL TENDER [facility] Comment:INFORMATION NOT PROV IDED PREV BX: SEE COMMENT 04/02/2016 12:37 PM BLACKING WHEEL TENDER [facility] Comment:INFORMATION NOT PROV IDED SOURCE Endocervix 04/02/2016 12:37 PM BLACKING WHEEL TENDER [facility] ADEQUACY: SEE COMMENT 04/02/2016 12:37 PM BLACKING WHEEL TENDER [facility] Comment:SATISFACTORY FOR KASANDRA LUATION PAP INTERP SEE COMMENT 04/02/2016 12:37 PM BLACKING WHEEL TENDER [facility] Comment: Negative for intraepithelial lesion or malignancy. Atrophic pattern; predominantly parabasal cells COMMENT SEE COMMENT 04/02/2016 12:37 PM BLACKING WHEEL TENDER [facility] Comment: This Pap test has been evaluated with computer assisted technology. CREDIT CASHIER: SEE COMMENT 2015 12:37 PM BLACKING WHEEL TENDER [facility] Comment: CLAUDIA, CT(ASCP) CT screening location: [place] [address] [address] [address] Genital SWAB OF ENDOCERVIX / Unknown Collection / Unknown 03/26/2016 2:02 PM BLACKING WHEEL TENDER 03/26/2016 8:40 PM BLACKING WHEEL TENDER Narrative [facility] - 04/02/2016 12:37 PM BLACKING WHEEL TENDER Performing Organization Information: Site ID: Name: [facility] Address: [facility] [address] [address] Director: Theresa Cruz MD us Kiel Watkins MD PATHOLOGY/CYTOLOGY ORDERABLES Final Result [facility] from Last 3 Months or Most Recently Relevant to Health Maintenance Insurance [facility] BLUE ACCESS CHOICE Advance Directives For more information, please contact: [phone] * Full Code (Latest Code Status on File) Date Activated Date Inactivated Comments 03/26/2023 8:10 AM 03/26/2023 12:51 PM * Full Code Date Activated Date Inactivated Comments 03/10/2013 8:27 AM 03/10/2013 1:59 PM Care Teams Rn Recovery Relationship Specialty Start Date End Date Isaias Baugh MD PCP - General Internal Medicine 08/16/14
--- OUTSIDE RECORDS SUMMARY | 2024-07-17 20:15 | XMS_ITS | Encounter Summary ---
Author Organization [facility] Address [address] [place] [address] Care Team Providers Care School Health Aide Name Role Phone Isaias Baugh MD Primary Care Provider [phone] Encounter Details Date Type Department Care Team (Late st Contact Info) Description 12/06/2002 Outpatient Historical [facility] Internal Medicine - [place] [address] [place] [phone] Sher Lockhart MD NO ADDRESS ON FILE Social History Tobacco Use Types Packs/Day Years Used Date Smoking Tobacco: Never Assessed Comments Unknown Sex and Gender Information Value Date Recorded Sex Assigned at Not on file Legal Sex Female 5:06 AM ASSISTANT TERMINAL MANAGER Gender Identity Not on file Sexual Orientation Not on file documented as of this encounter Plan of Treatment Upcoming Encounters Date Type Department Care Team (Late st Contact Info) Description 04/07/2025 9:20 AM ASSISTANT TERMINAL MANAGER Office Visit [facility] Primary Care [address] [place] [address] [place] [address] [address] documented as of this encounter Visit Diagnoses Not on filedocumented in this encounter Care Teams School Health Aide Relationship Specialty Start Date End Date Isaias Baugh MD PCP - General Internal Medicine 08/16/14 documented as of this encounter
--- OUTSIDE RECORDS SUMMARY | 2024-07-17 20:15 | XMS_ITS | Encounter Summary ---
Author Organization [facility] Address [address] [place] [address] Care Team Providers Care Catalogue Compiler Name Role Phone Isaias Baugh MD Primary Care Provider [phone] Encounter Details Date Type Department Care Team (Late st Contact Info) Description 08/09/2001 Outpatient Historical [facility] [place] - Medical [facility] [address] [facility] [address] [address] Sabrina Adlerh Social History Tobacco Use Types Packs/Day Years Used Date Smoking Tobacco: Never Assessed Comments Unknown Sex and Gender Information Value Date Recorded Sex Assigned at Not on file Legal Sex Female 5:06 AM MINUTE CLERK FOR BASIC TRAFFIC Gender Identity Not on file Sexual Orientation Not on file documented as of this encounter Plan of Treatment Upcoming Encounters Date Type Department Care Team (Late st Contact Info) Description 04/07/2025 9:20 AM MINUTE CLERK FOR BASIC TRAFFIC Office Visit [facility] Primary Care [facility] [address] [facility] [address] [place] [phone] [place] [address] [address] documented as of this encounter Visit Diagnoses Not on filedocumented in this encounter Care Teams Catalogue Compiler Relationship Specialty Start Date End Date Isaias Baugh MD PCP - General Internal Medicine 08/16/14 documented as of this encounter
--- OUTSIDE RECORDS SUMMARY | 2024-07-17 20:15 | XMS_ITS | Encounter Summary ---
Author Organization [facility] Address [address] [place] [address] Care Team Providers Care Pole Sander Operator Name Role Phone Isaias Baugh MD Primary Care Provider [phone] Encounter Details Date Type Department Care Team (Late st Contact Info) Description 05/03/2002 Outpatient Historical [facility] CARE TRANSITION [facility] - [facility] [address] [facility] [address] [place] [address] Jose Mercer MD [address] [place], [place] [id number] Social History Tobacco Use Types Packs/Day Years Used Date Smoking Tobacco: Never Assessed Comments Unknown Sex and Gender Information Value Date Recorded Sex Assigned at Not on file Legal Sex Female 5:06 AM IMAGING AIDE Gender Identity Not on file Sexual Orientation Not on file documented as of this encounter Plan of Treatment Upcoming Encounters Date Type Department Care Team (Late st Contact Info) Description 04/07/2025 9:20 AM IMAGING AIDE Office Visit [facility] Primary Care [facility] [address] [facility] [address] [place] [address] [place] [address] [facility] [address] [place], [place] [address] documented as of this encounter Visit Diagnoses Not on filedocumented in this encounter Care Teams Pole Sander Operator Relationship Specialty Start Date End Date Isaias Baugh MD PCP - General Internal Medicine 08/16/14 documented as of this encounter
--- OUTSIDE RECORDS SUMMARY | 2024-07-17 20:15 | XMS_ITS | Encounter Summary ---
Author Organization [facility] Address [address] [place] [address] Care Team Providers Care Mapping Supervisor Name Role Phone Isaias Baugh MD Primary Care Provider [phone] Encounter Details Date Type Department Care Team (Late st Contact Info) Description 09/18/2000 Outpatient Historical [facility] [address] [facility] [address] [place] [address] Sher Lockhart MD NO ADDRESS ON FILE Social History Tobacco Use Types Packs/Day Years Used Date Smoking Tobacco: Never Assessed Comments Unknown Sex and Gender Information Value Date Recorded Sex Assigned at Not on file Legal Sex Female 5:06 AM MANAGER QUALITY Gender Identity Not on file Sexual Orientation Not on file documented as of this encounter Plan of Treatment Upcoming Encounters Date Type Department Care Team (Late st Contact Info) Description 04/07/2025 9:20 AM MANAGER QUALITY Office Visit [facility] [address] [facility] [address] [place] [address] [place] [address] [facility] [address] [place] [address] documented as of this encounter Visit Diagnoses Not on filedocumented in this encounter Care Teams Mapping Supervisor Relationship Specialty Start Date End Date Isaias Baugh MD PCP - General Internal Medicine 08/16/14 documented as of this encounter
--- NOTE | 2024-07-17 23:05 | ED_ITS ---
HPI - General Adult General Chief complaint: Animal Bite Stated complaint: dog bite Time Seen by Provider: 07/17/24 22:45 Source: patient and family Mode of arrival: ambulatory Limitations: no limitations History of Present Illness HPI narrative: Patient presents after her daughter's dog bit her on the left walton today. She states it is not terribly painful, 2/10 in severity. This dog is up-to-date on its shots and known to the family. She initially washed it with water followed by saline. She was concerned given the degree of bleeding. Her last tetanus shot is unknown but she believes it was approximately 10 years ago. Not on any anticoagulation Related Data Allergies Allergy/AdvReac Type Severity Reaction Status Date / Time morphine AdvReac Mild Nausea and Verified 07/17/24 20:20 Vomiting Penicillins AdvReac Mild Nausea and Verified 07/17/24 20:20 Vomiting Exam Narrative: GENERAL: Well-appearing, well-nourished, and in no acute distress. HEAD: Normocephalic, atraumatic. EYES: Non injected, non icteric ENT: Nares clear, no rhinorrhea or epistaxis. NECK: Supple. CHEST: Speaking in full sentences. No respiratory distress. HEART: Regular rate and rhythm. . ABDOMEN: Soft, nondistended. EXTREMITIES: Normal range of motion. No lower extremity edema. SKIN: Warm, dry. 1 cm x 1 cm skin tear/abrasion/avulsion on left anterior walton. Adjacent to this is a 2.5 cm linear laceration with some subcutaneous fat exposed. Bleeding controlled initailly with non-adherant gauze followed by roshan wrap. When removed, edge of wound does start oozing blood but well controlled with pressure. NEURO: No focal deficits. Alert and oriented x3. Sensation intact. PSYCH: Normal mood and affect. Course Vital Signs Vital signs: Vital Signs Temperature 97.8 F 07/17/24 20:14 Pulse Rate 83 07/17/24 20:14 Respiratory Rate 16 07/17/24 20:14 Blood Pressure 152/82 H 07/17/24 20:14 Pulse Oximetry 100 07/17/24 20:14 Oxygen Delivery Room Air 07/17/24 20:14 Temperature 97.8 F 07/17/24 20:14 Pulse Rate 83 07/17/24 20:14 Respiratory Rate 16 07/17/24 20:14 Blood Pressure 152/82 H 07/17/24 20:14 Pulse Oximetry 100 07/17/24 20:14 Oxygen Delivery Room Air 07/17/24 20:14 Medical Decision Making MDM Narrative Medical decision making narrative: Patient presents after sustaining a dog bite to her left walton earlier today. This is her daughter's dog and thus known to be up-to-date on his shots. Her last tetanus shot was approximately 10 years ago. In the emergency department she is afebrile with vital signs notable for hypertension. Patient given analgesic medication, tetanus shot updated. Wound irrigated with hydrogen peroxide and bandaged/dressed by nurse. Patient given 1st dose of antibiotic in the emergency department with the rest of the course prescribed, doxycycline given rather than Augmentin as patient does list an allergy to penicillins. We discussed side effects of doxycycline. We discussed appropriate wound care and a wound check as well as strict return precautions that would indicate infection. She verifies understanding is in agreement. Stable for discharge. Also provided prescription for acetaminophen. Vital Signs Vital Signs: Vital Signs Temperature 97.8 F 07/17/24 20:14 Pulse Rate 83 07/17/24 20:14 Respiratory Rate 16 07/17/24 20:14 Blood Pressure 152/82 H 07/17/24 20:14 Pulse Oximetry 100 07/17/24 20:14 Oxygen Delivery Room Air 07/17/24 20:14 Temperature 97.8 F 07/17/24 20:14 Pulse Rate 83 07/17/24 20:14 Respiratory Rate 16 07/17/24 20:14 Blood Pressure 152/82 H 07/17/24 20:14 Pulse Oximetry 100 07/17/24 20:14 Oxygen Delivery Room Air 07/17/24 20:14 Discharge Plan Discharge Clinical Impression: Dog bite of left lower leg, Avulsion of skin of left lower leg, Laceration of left leg Patient Disposition: Home, Self-Care Condition: Stable Instructions: Antibiotic Form, Animal Bite (ED), Laceration (DC), Skin Avulsion (ED) Additional Instructions: Keep the area clean warm and dry. Warm soapy water is fine but make sure the area is fully dry before re-applying any bandage. Avoid using hydrogen pe roxide. Also avoid Neosporin. Take course of antibiotics. You received 1st dose tonight. Follow-up with your primary care physician for a wound check. If you do not have 1 the name of the doctors listed below. Your tetanus shot was updated tonight. Return to the emergency department with any new or worsening symptoms such as fever greater than 100.4? F, spreading or streaking redness, pus / discharge Keep involved extremity elevated. Avoid soaking the wound and avoid wrapping bandages too tightly. Patient Language: Pakistani Prescriptions: New doxycycline hyclate 100 mg tablet 100 mg PO BID 14 Days Qty: 27 0RF Rx Instructions: start 07/18/24; received first dose in ED 07/17/24 acetaminophen 500 mg capsule 1,000 mg PO Q6H PRN (Reason: pain) Qty: 20 0RF Follow-up/Referrals: PHYSICIAN NOT ON STAFF,NONSTAFF [Non-Staff] - Prateek Hines MD [Physician] - Stand Alone Forms: Work/School Release IP Time of Disposition: 23:48
[2024-07-17] MEDS: DOXYCYCLINE HYCLATE 100 MG TABLET PO (23:34)
[2024-07-17] MEDS: TETANUS,DIPHTHERIA,AC PERTUSSIS ADULT (0.5 ML) BOOSTRIX IM (23:35)
[2024-07-17] MEDS: HYDROGEN PEROXIDE 3% SOLN(*SP) 473 ML BOTTLE 100 ML IRRIGATION (23:35)
--- NOTE | 2024-07-17 23:55 | PC.NURSE ---
this rn irrigated patient animal bite with hydrogen peroxide per vorb from edp dr. gracia
--- OUTSIDE RECORDS SUMMARY | 2024-07-18 00:01 | XMS_ITS | Encounter Summary ---
Author Organization [facility] Address [address] [place] [address] Care Team Providers Care Enamel Applier Name Role Phone Isaias Baugh MD Primary Care Provider [phone] Encounter Details Date Type Department Care Team (Late st Contact Info) Description 09/18/2000 Outpatient Historical [facility] [address] [facility] [address] [place] [address] Sher Lockhart MD NO ADDRESS ON FILE Social History Tobacco Use Types Packs/Day Years Used Date Smoking Tobacco: Never Assessed Comments Unknown Sex and Gender Information Value Date Recorded Sex Assigned at Not on file Legal Sex Female 5:06 AM PRODUCT STRATEGY DIRECTOR Gender Identity Not on file Sexual Orientation Not on file documented as of this encounter Plan of Treatment Upcoming Encounters Date Type Department Care Team (Late st Contact Info) Description 04/07/2025 9:20 AM PRODUCT STRATEGY DIRECTOR Office Visit [facility] [address] [facility] [address] [place] [address] [place] [address] [facility] [address] [place] [address] documented as of this encounter Visit Diagnoses Not on filedocumented in this encounter Care Teams Enamel Applier Relationship Specialty Start Date End Date Isaias Baugh MD PCP - General Internal Medicine 08/16/14 documented as of this encounter
--- OUTSIDE RECORDS SUMMARY | 2024-07-18 00:01 | XMS_ITS | Encounter Summary ---
Author Organization [facility] Address [address] [place] [address] Care Team Providers Care Press Tender Star Signal Name Role Phone Isaias Baugh MD Primary Care Provider [phone] Encounter Details Date Type Department Care Team (Late st Contact Info) Description 11/07/2004 Outpatient Historical [facility] Internal Medicine - [place] [address] [place] [address] Sher Lockhart MD NO ADDRESS ON FILE Social History Tobacco Use Types Packs/Day Years Used Date Smoking Tobacco: Never Assessed Comments Unknown Sex and Gender Information Value Date Recorded Sex Assigned at Not on file Legal Sex Female 5:06 AM BUDGET ENGINEER Gender Identity Not on file Sexual [...] st Contact Info) Description 04/07/2025 9:20 AM BUDGET ENGINEER Office Visit [facility] Primary Care [address] [place] [address] [place] [address] [address] documented as of this encounter Visit Diagnoses Not on filedocumented in this encounter Care Teams Press Tender Star Signal Relationship Specialty Start Date End Date Isaias Baugh MD PCP - General Internal Medicine 08/16/14 documented as of this encounter
--- OUTSIDE RECORDS SUMMARY | 2024-07-18 00:01 | XMS_ITS | Encounter Summary ---
Author Organization [facility] Address [address] [place] [address] Care Team Providers Care Optical Mechanic Apprentice Name Role Phone Isaias Baugh MD Primary Care Provider [phone] Encounter Details Date Type Department Care Team (Latest Contact Info) Description 09/24/2000 Outpatient Historical [facility] MIGEL Lockhart, Sher Brown MD NO ADDRESS ON FILE Lump or mass in breast (Primary Dx) Social History Tobacco Use Types Packs/Day Years Used Date Smoking Tobacco: Never Assessed Comments Unknown Sex and Gender Information Value Date Recorded Sex Assigned at Not on file Legal Sex Female 5:06 AM LOADING DOCK HELPER Gender Identity Not on file Sexual Orientation Not on file documented as of this encounter Plan of Treatment Upcoming Encounters Date Type Department Care Team (Late st Contact Info) Description 04/07/2025 9:20 AM LOADING DOCK HELPER Office Visit [facility] Primary Care [address] [place] [address] [place] [address] [address] documented as of this encounter Visit Diagnoses Diagnosis Lump or mass in breast- Primary documented in this encounter Care Teams Optical Mechanic Apprentice Relationship Specialty Start Date End Date Isaias Baugh MD PCP - General Internal Medicine 08/16/14 documented as of this encounter
--- OUTSIDE RECORDS SUMMARY | 2024-07-18 00:01 | XMS_ITS | Encounter Summary ---
Author Organization [facility] Address [address] [place] [address] Care Team Providers Care Disk And Tape Machine Tender Name Role Phone Isaias Baugh MD Primary Care Provider [phone] Encounter Details Date Type Department Care Team (Late st Contact Info) Description 12/06/2002 Outpatient Historical [facility] [place] [facility] Internal Medicine - [place] [address] [place] [address] Sher Lockhart MD NO ADDRESS ON FILE Social History Tobacco Use Types Packs/Day Years Used Date Smoking Tobacco: Never Assessed Comments Unknown Sex and Gender Information Value Date Recorded Sex Assigned at Not on file Legal Sex Female 5:06 AM MANAGER MANAGING Gender Identity Not on file Sexual Orientation Not on file documented as of this encounter Plan of Treatment Upcoming Encounters Date Type Department Care Team (Late st Contact Info) Description 04/07/2025 9:20 AM MANAGER MANAGING Office Visit [facility] Primary Care [address] [place] [address] [place] [address] [address] documented as of this encounter Visit Diagnoses Not on filedocumented in this encounter Care Teams Disk And Tape Machine Tender Relationship Specialty Start Date End Date Isaias Baugh MD PCP - General Internal Medicine 08/16/14 documented as of this encounter
--- OUTSIDE RECORDS SUMMARY | 2024-07-18 00:01 | XMS_ITS | Encounter Summary ---
Author Organization [facility] Address [address] [place] [address] Care Team Providers Care Finish Painter Name Role Phone Isaias Baugh MD Primary Care Provider [phone] Encounter Details Date Type Department Care Team (Late st Contact Info) Description 12/06/2002 Outpatient Historical [facility] Internal Medicine - [place] [address] [place] [address] Sher Lockhart MD NO ADDRESS ON FILE Social History Tobacco Use Types Packs/Day Years Used Date Smoking Tobacco: Never Assessed Comments Unknown Sex and Gender Information Value Date Recorded Sex Assigned at Not on file Legal Sex Female 5:06 AM CAN RUNNER Gender Identity Not on file Sexual Orientation Not on file documented as of this encounter Plan of Treatment Upcoming Encounters Date Type Department Care Team (Late st Contact Info) Description 04/07/2025 9:20 AM CAN RUNNER Office Visit [facility] Primary Care [address] [place] [address] [place] [address] [address] documented as of this encounter Visit Diagnoses Not on filedocumented in this encounter Care Teams Finish Painter Relationship Specialty Start Date End Date Isaias Baugh MD PCP - General Internal Medicine 08/16/14 documented as of this encounter
--- OUTSIDE RECORDS SUMMARY | 2024-07-18 00:01 | XMS_ITS | Encounter Summary ---
Author Organization [facility] Address [address] [place] [address] Care Team Providers Care Goring Cutter Name Role Phone Isaias Baugh MD Primary Care Provider [phone] Encounter Details Date Type Department Care Team (Late st Contact Info) Description 03/08/1999 Outpatient Historical [facility] [address] [facility] [address] [place] [address] Sher Lockhart MD NO ADDRESS ON FILE Social History Tobacco Use Types Packs/Day Years Used Date Smoking Tobacco: Never Assessed Comments Unknown Sex and Gender Information Value Date Recorded Sex Assigned at Not on file Legal Sex Female 5:06 AM TWISTER DOFFER Gender Identity Not on file Sexual Orientation Not on file documented as of this encounter Plan of Treatment Upcoming Encounters Date Type Department Care Team (Late st Contact Info) Description 04/07/2025 9:20 AM TWISTER DOFFER Office Visit [facility] [address] [facility] [address] [place] [address] [place] [address] [facility] [address] [place] [address] documented as of this encounter Visit Diagnoses Not on filedocumented in this encounter Care Teams Goring Cutter Relationship Specialty Start Date End Date Isaias Baugh MD PCP - General Internal Medicine 08/16/14 documented as of this encounter
--- OUTSIDE RECORDS SUMMARY | 2024-07-18 00:01 | XMS_ITS | Encounter Summary ---
Author Organization [facility] Address [address] [place] [address] Care Team Providers Care Steeple Jack Name Role Phone Isaias Baugh MD Primary Care Provider [phone] Encounter Details Date Type Department Care Team (Late st Contact Info) Description 12/06/2002 Outpatient Historical [facility] Internal Medicine - [place] [address] [place] [address] Sher Lockhart MD NO ADDRESS ON FILE Social History Tobacco Use Types Packs/Day Years Used Date Smoking Tobacco: Never Assessed Comments Unknown Sex and Gender Information Value Date Recorded Sex Assigned at Not on file Legal Sex Female 5:06 AM TRANSPORTATION SERVICES REPRESENTATIVE Gender Identity Not on file Sexual Orientation Not on file documented as of this encounter Plan of Treatment Upcoming Encounters Date Type Department Care Team (Late st Contact Info) Description 04/07/2025 9:20 AM TRANSPORTATION SERVICES REPRESENTATIVE Office Visit [facility] Primary Care [address] [place] [address] [place] [address] [address] documented as of this encounter Visit Diagnoses Not on filedocumented in this encounter Care Teams Steeple Jack Relationship Specialty Start Date End Date Isaias Baugh MD PCP - General Internal Medicine 08/16/14 documented as of this encounter
--- OUTSIDE RECORDS SUMMARY | 2024-07-18 00:01 | XMS_ITS | Encounter Summary ---
Author Organization [facility] Address [address] [place] [address] Care Team Providers Care Batch Freezer Operator Name Role Phone Isaias Baugh MD Primary Care Provider [phone] Encounter Details Date Type Department Care Team (Latest Contact Info) Description 12/30/2003 Outpatient Historical [facility] Lockhart, Sher Brown MD NO ADDRESS ON FILE SCREENING MAMM-MAILG NEOPL-OTHER (Primary Dx) Social History Tobacco Use Types Packs/Day Years Used Date Smoking Tobacco: Never Assessed Comments Unknown Sex and Gender Information Value Date Recorded Sex Assigned at Not on file Legal Sex Female 5:06 AM COTTON GIN YARD SUPERVISOR Gender Identity Not on file Sexual Orientation Not on file documented as of this encounter Plan of Treatment Upcoming Encounters Date Type Department Care Team (Late st Contact Info) Description 04/07/2025 9:20 AM COTTON GIN YARD SUPERVISOR Office Visit [facility] Primary Care [address] [place] [address] [place] [address] [address] documented as of this encounter Visit Diagnoses Diagnosis Other screening mammogram- Primary documented in this encounter Care Teams Batch Freezer Operator Relationship Specialty Start Date End Date Isaias Baugh MD PCP - General Internal Medicine 08/16/14 documented as of this encounter
--- OUTSIDE RECORDS SUMMARY | 2024-07-18 00:01 | XMS_ITS | Encounter Summary ---
Author Organization [facility] Address [address] [place] [address] Care Team Providers Care Collar Closer Lockstitch Name Role Phone Isaias Baugh MD Primary Care Provider [phone] Encounter Details Date Type Department Care Team (Late st Contact Info) Description 08/14/2003 Outpatient Historical [facility] SLAT PICKLER - [facility] [address] [facility] [address] [place] [address] Jose Mercer MD [address] [place], [place] [address] Social History Tobacco Use Types Packs/Day Years Used Date Smoking Tobacco: Never Assessed Comments Unknown Sex and Gender Information Value Date Recorded Sex Assigned at Not on file Legal Sex Female 5:06 AM RANCH MANAGER Gender Identity Not on file Sexual Orientation Not on file documented as of this encounter Plan of Treatment Upcoming Encounters Date Type Department Care Team (Late st Contact Info) Description 04/07/2025 9:20 AM RANCH MANAGER Office Visit [facility] Primary Care [facility] [address] [facility] [address] [place] [address] [place] [address] [facility] [address] [place], [place] [address] documented as of this encounter Visit Diagnoses Not on filedocumented in this encounter Care Teams Collar Closer Lockstitch Relationship Specialty Start Date End Date Isaias Baugh MD PCP - General Internal Medicine 08/16/14 documented as of this encounter
--- OUTSIDE RECORDS SUMMARY | 2024-07-18 00:01 | XMS_ITS | Encounter Summary ---
Author Organization [facility] Address [address] [place] [address] Care Team Providers Care Animal Treatment Investigator Name Role Phone Isaias Baugh MD Primary Care Provider [phone] Encounter Details Date Type Department Care Team (Latest Contact Info) Description 12/24/2002 Outpatient Historical [facility] M[facility] Lockhart, Sher Brown MD NO ADDRESS ON FILE SCREENING MAMM-MALIG NEOPL-HI RISK (Primary Dx) Social History Tobacco Use Types Packs/Day Years Used Date Smoking Tobacco: Never Assessed Comments Unknown Sex and Gender Information Value Date Recorded Sex Assigned at Not on file Legal Sex Female 5:06 AM MOLDING PLASTERER Gender Identity Not on file Sexual Orientation Not on file documented as of this encounter Plan of Treatment Upcoming Encounters Date Type Department Care Team (Late st Contact Info) Description 04/07/2025 9:20 AM MOLDING PLASTERER Office Visit [facility] Primary Care [address] [place] [address] [place] [address] [address] documented as of this encounter Visit Diagnoses Diagnosis Screening mammogram for high-risk patient- Primary documented in this encounter Care Teams Animal Treatment Investigator Relationship Specialty Start Date End Date Isaias Baugh MD PCP - General Internal Medicine 08/16/14 documented as of this encounter
--- OUTSIDE RECORDS SUMMARY | 2024-07-18 00:01 | XMS_ITS | Encounter Summary ---
Author Organization [facility] Address [address] [place] [address] Care Team Providers Care Level Vial Grinder Name Role Phone Isaias Baugh MD Primary Care Provider Encounter Details Date Type Department Care Team (Late st Contact Info) Description 06/04/1999 Outpatient Historical [facility] - [facility] [address] [facility] [address] [place] [address] Sher Lockhart MD NO ADDRESS ON FILE Social History Tobacco Use Types Packs/Day Years Used Date Smoking Tobacco: Never Assessed Comments Unknown Sex and Gender Information Value Date Recorded Sex Assigned at Not on file Legal Sex Female 5:06 AM BLOOMING MILL SUPERVISOR Gender Identity Not on file Sexual Orientation Not on file documented as of this encounter Plan of Treatment Upcoming Encounters Date Type Department Care Team (Late st Contact Info) Description 04/07/2025 9:20 AM BLOOMING MILL SUPERVISOR Office Visit [facility] [address] [facility] [address] [place] [address] [place] [address] [facility] [address] [place] [address] documented as of this encounter Visit Diagnoses Not on filedocumented in this encounter Care Teams Level Vial Grinder Relationship Specialty Start Date End Date Isaias Baugh MD PCP - General Internal Medicine 08/16/14 documented as of this encounter
--- OUTSIDE RECORDS SUMMARY | 2024-07-18 00:01 | XMS_ITS | Encounter Summary ---
Author Organization [facility] Address [address] [place] [address] Care Team Providers Care Talent Program Manager Name Role Phone Isaias Baugh MD Primary Care Provider [phone] Encounter Details Date Type Department Care Team (Late st Contact Info) Description 11/18/2004 Outpatient Historical [facility] ACCESS NURSE - [facility] [address] [facility] [address] [place] [address] Jose Mercer MD [address] [place], [place] [id number] Social History Tobacco Use Types Packs/Day Years Used Date Smoking Tobacco: Never Assessed Comments Unknown Sex and Gender Information Value Date Recorded Sex Assigned at Not on file Legal Sex Female 5:06 AM FUDGER Gender Identity Not on file Sexual Orientation Not on file documented as of this encounter Plan of Treatment Upcoming Encounters Date Type Department Care Team (Late st Contact Info) Description 04/07/2025 9:20 AM FUDGER Office Visit [facility] Primary [facility] [address] [facility] [address] [place] [address] [place] [address] [facility] [address] [place], [place] [address] documented as of this encounter Visit Diagnoses Not on filedocumented in this encounter Care Teams Talent Program Manager Relationship Specialty Start Date End Date Isaias Baugh MD PCP - General Internal Medicine 08/16/14 documented as of this encounter
--- OUTSIDE RECORDS SUMMARY | 2024-07-18 00:01 | XMS_ITS | Encounter Summary ---
Author Organization [facility] Address [address] [place] [address] Care Team Providers Care Literacy Coach Name Role Phone Isaias Baugh MD Primary Care Provider Encounter Details Date Type Department Care Team (Late st Contact Info) Description 03/16/1998 Outpatient Historical [facility] [address] [facility] [address] [place] [address] Sher Lockhart MD NO ADDRESS ON FILE Social History Tobacco Use Types Packs/Day Years Used Date Smoking Tobacco: Never Assessed Comments Unknown Sex and Gender Information Value Date Recorded Sex Assigned at Not on file Legal Sex Female 5:06 AM METAL CASTING TRADES WORKER Gender Identity Not on file Sexual Orientation Not on file documented as of this encounter Plan of Treatment Upcoming Encounters Date Type Department Care Team (Late st Contact Info) Description 04/07/2025 9:20 AM METAL CASTING TRADES WORKER Office Visit [facility] [address] [facility] [address] [place] [address] [place] [address] [facility] [address] [place] [address] documented as of this encounter Visit Diagnoses Not on filedocumented in this encounter Care Teams Literacy Coach Relationship Specialty Start Date End Date Isaias Baugh MD PCP - General Internal Medicine 08/16/14 documented as of this encounter
--- OUTSIDE RECORDS SUMMARY | 2024-07-18 00:01 | XMS_ITS | Encounter Summary ---
Author Organization [facility] Address [address] [place] [address] Care Team Providers Care Integration Developer Name Role Phone Isaias Baugh MD Primary Care Provider [phone] Encounter Details Date Type Department Care Team (Latest Contact Info) Description 01/22/2004 Outpatient Historical [facility] Ish Saavedra MD [address] [facility] [address] [address] DIFFUS CYSTIC MASTOPATHY (Primary Dx) Social History Tobacco Use Types Packs/Day Years Used Date Smoking Tobacco: Never Assessed Comments Unknown Sex and Gender Information Value Date Recorded Sex Assigned at Not on file Legal Sex Female 5:06 AM SVP RESEARCH AND STRATEGIC ANALYSIS Gender Identity Not on file Sexual Orientation Not on file documented as of this encounter Plan of Treatment Upcoming Encounters Date Type Department Care Team (Late st Contact Info) Description 04/07/2025 9:20 AM SVP RESEARCH AND STRATEGIC ANALYSIS Office Visit [facility] Primary Care [address] [place] [address] [place] [address] [facility] [address] [place] [address] documented as of this encounter Visit Diagnoses Diagnosis Diffuse cystic mastopathy- Primary documented in this encounter Care Teams Integration Developer Relationship Specialty Start Date End Date Isaias Baugh MD PCP - General Internal Medicine 08/16/14 documented as of this encounter
--- OUTSIDE RECORDS SUMMARY | 2024-07-18 00:01 | XMS_ITS | Encounter Summary ---
Author Organization [facility] Address [address] [place] [address] Care Team Providers Care Social Work Supervisor Name Role Phone Isaias Baugh MD Primary Care Provider [phone] Encounter Details Date Type Department Care Team (Latest Contact Info) Description 08/09/2001 [facility]M-MAILG NEOPL-OTHER (Primary Dx) Social History Tobacco Use Types Packs/Day Years Used Date Smoking Tobacco: Never Assessed Comments Unknown Sex and Gender Information Value Date Recorded Sex Assigned at Not on file Legal Sex Female 5:06 AM EDUCATION DEPARTMENT CHAIR Gender Identity Not on file Sexual Orientation Not on file documented as of this encounter Plan of Treatment Upcoming Encounters Date Type Department Care Team (Late st Contact Info) Description 04/07/2025 9:20 AM EDUCATION DEPARTMENT CHAIR Office Visit [facility] Primary Care [address] [place] [address] [place] [address] [address] documented as of this encounter Visit Diagnoses Diagnosis Other screening mammogram- Primary documented in this encounter Care Teams Social Work Supervisor Relationship Specialty Start Date End Date Isaias Baugh MD PCP - General Internal Medicine 08/16/14 documented as of this encounter
--- OUTSIDE RECORDS SUMMARY | 2024-07-18 00:01 | XMS_ITS | Encounter Summary ---
Author Organization [facility] Address [address] [place] [address] Care Team Providers Care Electrical Appliance Mechanic Name Role Phone Isaias Baugh MD Primary Care Provider [phone] Encounter Details Date Type Department Care Team (Late st Contact Info) Description 05/03/2002 Outpatient Historical [facility] PULLING UNIT OPERATOR - [facility] [address] [facility] [address] [place] [address] Jose Mercer MD [address] [place], [place] [id number] Social History Tobacco Use Types Packs/Day Years Used Date Smoking Tobacco: Never Assessed Comments Unknown Sex and Gender Information Value Date Recorded Sex Assigned at Not on file Legal Sex Female 5:06 AM ENAMEL DRIER Gender Identity Not on file Sexual Orientation Not on file documented as of this encounter Plan of Treatment Upcoming Encounters Date Type Department Care Team (Late st Contact Info) Description 04/07/2025 9:20 AM ENAMEL DRIER Office Visit [facility] [address] [facility] [address] [place] [address] [place] [address] [facility] [address] [place], [place] [address] documented as of this encounter Visit Diagnoses Not on filedocumented in this encounter Care Teams Electrical Appliance Mechanic Relationship Specialty Start Date End Date Isaias Baugh MD PCP - General Internal Medicine 08/16/14 documented as of this encounter
--- OUTSIDE RECORDS SUMMARY | 2024-07-18 00:01 | XMS_ITS | Encounter Summary ---
Author Organization [facility] Address [address] [place] [address] Care Team Providers Care Lens Cutter Name Role Phone Isaias Baugh MD Primary Care Provider [phone] Encounter Details Date Type Department Care Team (Latest Contact Info) Description 02/04/2006 Outpatient Historical [facility] Lockhart, Sher Brown MD NO ADDRESS ON FILE Screening Mammogram for High-Risk Patient (Primary Dx) Social History Tobacco Use Types Packs/Day Years Used Date Smoking Tobacco: Never Assessed Comments Unknown Sex and Gender Information Value Date Recorded Sex Assigned at Not on file Legal Sex Female 5:06 AM OVERHEAD GARAGE DOOR HANGER Gender Identity Not on file Sexual Orientation Not on file documented as of this encounter Plan of Treatment Upcoming Encounters Date Type Department Care Team (Late st Contact Info) Description 04/07/2025 9:20 AM OVERHEAD GARAGE DOOR HANGER Office Visit [facility] Primary Care [address] [place] [address] [place] [address] [address] documented as of this encounter Visit Diagnoses Diagnosis Screening mammogram for high-risk patient- Primary documented in this encounter Care Teams Lens Cutter Relationship Specialty Start Date End Date Isaias Baugh MD PCP - General Internal Medicine 08/16/14 documented as of this encounter
--- OUTSIDE RECORDS SUMMARY | 2024-07-18 00:02 | XMS_ITS | Clinical Summary ---
Author Organization [facility] Address [address] [place] [address] Care Team Providers Care Community Relations Rep Name Role Phone Isaias Baugh MD Primary Care Provider [phone] Allergies Active Allergy Reactions Criticality Noted Date [...] migh t be different from the original. RECEIVING ROOM CLERK->DR WATKINS ENDO->DR ROMANO GI->DR MORENO->DR SMITH Problem Noted Date Diagnosed Date Positive colorectal cancer screening using Colog uard test 02/15/2023 Subclinical hyperthyroidism 01/24/2016 Overview (02/02/2023): 01/10 TSH 0.12->- PLAN CONT'D MONITORING 03/12 FT4 NL PER RECEIVING ROOM CLERK 02/10 TSH 0.23->- PLAN CONT'D MONITORING 03/15 [...] - HDL 35 - TG 85 01/10 [id number] Screening for diabetes mellitus 09/06/2014 10/01/2014 Overview [...] COVID-19 VACCINE - EMERGENCY USE AUTHORIZATION, MRNA, [id number](PF) 30 MCG/0.3 ML IM SUSP 09/19/2021,03/19/2021,05/03/2020,2019 (Pfizer [...] on file Legal Sex Female 5:06 AM JORDAN MAN Gender Identity Not on file Sexual Orientation Not on file Occupation Industry Job Start Date Job End Date Not on file Not on file Not on file Not on file Last Filed Vital Signs Vital Sign Reading Time Taken Comments Blood Pressure 137/76 04/07/2024 2:07 PM JORDAN MAN Pulse 74 04/07/2024 2:07 PM JORDAN MAN Temperature 36.3 C (97.4 F) 03/26/2023 9:11 AM JORDAN MAN Respiratory Rate 16 03/26/2023 9:21 AM JORDAN MAN Oxygen Saturation 99% 04/07/2024 2:07 PM JORDAN MAN Inhaled Oxygen Concentration - - Weight 76.2 kg (168 lb) 04/07/2024 2:07 PM JORDAN MAN Height 175.3 cm (5' 9 ) 04/07/2024 2:07 PM JORDAN MAN Body Mass Index 24.81 04/07/2024 2:07 PM JORDAN MAN Plan of Treatment Upcoming Encounters Date Type Department Care Team (Late st Contact Info) Description 04/07/2025 9:20 AM JORDAN MAN Office Visit [facility] [place] [id number] [place] [address] [place] [address] [facility] [address] [place] [address] Health Maintenance Due Date Last [...] OR WO CAD Routine 03/22/2024 8:23 AM JORDAN MAN Visit for screening mammogram COLONOSCOPY REPORT 03/26/2023 9: 10 AM JORDAN MAN CERV/VAG CYTO AGE BASED SCREEN PAP Routine 02/11/2023 2:20 PM CDT Screening for cervical cancer Encounter for gynecological examination without abnormal finding Well woman exam with routine gynecological exam COLON CANCER SCREEN, STOOL DNA Routine 02/09/2023 12:15 PM CDT Screen for colon cancer CERV/VAG CYTO SCREEN PAP RLFX HPV Routine 03/26/2016 2:02 PM JORDAN MAN Well woman exam with routine gynecological exam from Last 3 Months or Most Recently Relevant to Health Maintenance Results * MAMMO 3D MAURICE SCREEN BILAT W OR WO CAD (03/22/2024 8:23 AM JORDAN MAN) Anatomical Region Laterality Modality Breast Bilateral Mammography 03/22/2024 8:23 AM JORDAN MAN Impressions 03/22/2024 8:55 AM JORDAN MAN IMPRESSION: No mammographic evidence of malignancy in the bilateral breasts. Routine screening mammography is recommended in one year. OVERALL FINAL ASSESSMENT: BI-RADS CATEGORY 1 - Negative DICTATION LOCATION: [facility] Narrative 03/22/2024 8:55 AM JORDAN MAN EXAMINATION: BILATERAL SCREENING DIGITAL MAMMOGRAPHY WITH TOMOSYNTHESIS [...] BI-RADS CATEGORY 1 - Negative DICTATION LOCATION: [facility] us Kiel Watkins MD MAMMO ORDERABLES Final Result * COLONOSCOPY REPORT (03/26/2023 9:10 AM JORDAN MAN) Narrative Procedure Note Marianne Smith MD - 03/26/2023 9:10 AM CST [facility] Endoscopy Patient Name: Rosie Oropeza Procedure Date: [...] Addenda: 0 Procedure Date: 03/26/2023 8:35:[id number] [place] [address] Marianne Smtih MD GI PROCEDURE ORDERABLES F inal Result * CERV/VAG CYTO AGE BASED SCREEN PAP (02/11/2023 2:20 PM CDT) COMMENT (PAP): [facility] [place] Comment: This order for age-based cervical cancer and STI screening follows ACOG guidelines(PB 168, 140, NIS972). See individual assays for performing site location. CLINICAL INFORMATION [facility] [place] Comment:None given LAST MENSTRUAL PERIOD [facility] [place] Comment:NONE GIVEN PREV PAP: [facility] Comment:NONE GIVEN PREV BX: [facility] Comment:NONE GIVEN SOURCE [facility] Comment:Endocervix ADEQUACY: [facility] Comment:SATISFACTORY FOR KASANDRA LUATION PAP INTERP [facility] [place] Comment: Cytology Results: Negative for intraepithelial lesion or malignancy. Atrophic pattern; predominantly parabasal cells COMMENT (PAP TEST) [facility] Comment: This Pap test has been evaluated with computer assisted technology. CDL B DRIVER: [place] Royal Comment: TMK, CT(ASCP) CT screening location: [place] [address] [place] [address] EXPLANATORY NOTE [facility] Comment: EXPLANATORY NOTE: The Pap is [...] information. HPV E6/E7 Not Detected Not Detected [facility] [place] Comment: Methodology: Overlock Collar Setter-Mediated Amplification This assay detects E6/E7 viral messenger RNA (mRNA) from 14 high-risk HPV types (16,18,31,33,35,39,45,51,52,56,58,59,66,68). Cervical sources are required for HPV testing. If a vaginal source from a patient who has had a total hysterectomy with removal of cervix was submitted, please contact the testing laboratory for alternative testing options. For additional information, please refer to http://education.Ngt4u.inc/faq/EPG746z0 (This link if provided for information/ educational purposes only.) Test Performed at: [facility] [address] [facility] [place] [address] Theresa SANTANA Genital SWAB OF ENDOCERVIX / Unknown 02/11/2023 2:20 PM CDT 02/12/2023 3:27 AM CDT Kiel Watkins MD PATHOLOGY/CYTOLOGY ORDERABLES Final Result [facility] [phone] [facility] [address] [place] [address] * (ABNORMAL) COLON CANCER SCREEN, STOOL DNA (02/09/2023 12:15 PM CDT) COLOGUARD RESULT Positive( A) Negative [facility] Comment: POSITIVE TEST RESULT. A positive Cologuard [...] (Savita Swan al, N Engl J Med 2014;370(14):0369-0831.) Cologuard may produce a false negative or false positive result (no colorectal cancer or precancerous polyp present at colonoscopy follow up). A negative Cologuard test result does not guarantee the absence of CRC or advanced adenoma (pre-cancer). The current Cologuard screening interval is every 3 years. ([place] Cancer Society and U.S. Multi-Society Task Force). Cologuard performance data in a 10,000 patient pivotal study using colonoscopy as the reference method can be accessed at the following location: [email or web address] Bugs/results. Additional description of the Cologuard test process, warnings and precautions can be found at www.Seeliord.com. Stool STOOL SPECIMEN / Unknown 02/09/2023:15 PM CDT 02/10/2023 4:04 PM CDT Isaias Baugh MD BODY FLUIDS AND STOOLS Final Result [facility] CLIA # [id number] [address] , [address] [place] [address] * CERV/VAG CYTOPATH, THIN PREP IMAGR RFLX HPV (03/26/2016 2:02 PM JORDAN MAN) CLINICAL INFORMATION SEE COMMENT 04/02/2016 12:37 PM JORDAN MAN [facility] Comment: Information not provided SCREENING LAST MENSTRUAL PERIOD SEE COMMENT 04/02/2016 12:37 PM JORDAN MAN [facility] Comment:INFORMATION NOT PROV IDED PREV PAP: SEE COMMENT 04/02/2016 12:37 PM JORDAN MAN [facility] Comment:INFORMATION NOT PROV IDED PREV BX: SEE COMMENT 04/02/2016 12:37 PM JORDAN MAN [facility] Comment:INFORMATION NOT PROV IDED SOURCE Endocervix 04/02/2016 12:37 PM JORDAN MAN [facility] ADEQUACY: SEE COMMENT 04/02/2016 12:37 PM JORDAN MAN [facility] Comment:SATISFACTORY FOR KASANDRA LUATION PAP INTERP SEE COMMENT 04/02/2016 12:37 PM JORDAN MAN [facility] Comment: Negative for intraepithelial lesion or malignancy. Atrophic pattern; predominantly parabasal cells COMMENT SEE COMMENT 04/02/2016 12:37 PM JORDAN MAN [facility] Comment: This Pap test has been evaluated with computer assisted technology. CDL B DRIVER: SEE COMMENT 2015 12:37 PM JORDAN MAN [facility] Comment: CLAUDIA, CT(ASCP) CT screening location: [place] [address] [address] [address] Genital SWAB OF ENDOCERVIX / Unknown Collection / Unknown 03/26/2016 2:02 PM JORDAN MAN 03/26/2016 8:40 PM JORDAN MAN Narrative [facility] - 04/02/2016 12:37 PM JORDAN MAN Performing Organization Information: Site ID: Name: [facility] Address: [facility] [address] [place] [address] Director: Theresa Cruz MD us Kiel Watkins MD PATHOLOGY/CYTOLOGY ORDERABLES Final Result [facility] from Last 3 Months or Most Recently Relevant to Health Maintenance Insurance [facility] BLUE ACCESS CHOICE Advance Directives For more information, please contact: [phone] * Full Code (Latest Code Status on File) Date Activated Date Inactivated Comments 03/26/2023 8:10 AM 03/26/2023 12:51 PM * Full Code Date Activated Date Inactivated Comments 03/10/2013 8:27 AM 03/10/2013 1:59 PM Care Teams Community Relations Rep Relationship Specialty Start Date End Date Isaias Baugh MD PCP - General Internal Medicine 08/16/14
--- OUTSIDE RECORDS SUMMARY | 2024-07-18 00:02 | XMS_ITS | Encounter Summary ---
Author Organization [facility] Address [address] [place] [address] Care Team Providers Care Television Repairman Name Role Phone Isaias Baugh MD Primary Care Provider [phone] Encounter Details Date Type Department Care Team (Latest Contact Info) Description 10/01/2000 Inpatient Historical [facility] Tim Phillips MD NO ADDRESS ON FILE Nithya Rome MD NO ADDRESS ON FILE Diffuse cystic mastopathy (Primary Dx) Social History Tobacco Use Types Packs/Day Years Used Date Smoking Tobacco: Never Assessed Comments Unknown Sex and Gender Information Value Date Recorded Sex Assigned at Not on file Legal Sex Female 5:06 AM WICK TENDER Gender Identity Not on file Sexual Orientation Not on file documented as of this encounter Plan of Treatment Upcoming Encounters Date Type Department Care Team (Late st Contact Info) Description 04/07/2025 9:20 AM WICK TENDER Office Visit [facility] Primary Care [address] [place] [address] [place] [address] [address] documented as of this encounter Visit Diagnoses Diagnosis Diffuse cystic mastopathy- Primary documented in this encounter Care Teams Television Repairman Relationship Specialty Start Date End Date Isaias Baugh MD PCP - General Internal Medicine 08/16/14 documented as of this encounter
--- OUTSIDE RECORDS SUMMARY | 2024-07-18 00:02 | XMS_ITS | Encounter Summary ---
Author Organization [facility] Address [address] [place] [address] Care Team Providers Care Warp Starter Name Role Phone Isaias Baugh MD Primary Care Provider [phone] Encounter Details Date Type Department Care Team (Latest Contact Info) Description 07/28/2007 Outpatient Historical [facility] Rose Lockhart MD NO ADDRESS ON FILE Other Screening Mammogram Social History Tobacco Use Types Packs/Day Years Used Date Smoking Tobacco: Never Assessed Comments Unknown Sex and Gender Information Value Date Recorded Sex Assigned at Not on file Legal Sex Female 5:06 AM ORTHOTIST/PROSTHETIST Gender Identity Not on file Sexual Orientation Not on file documented as of this encounter Plan of Treatment Upcoming Encounters Date Type Department Care Team (Late st Contact Info) Description 04/07/2025 9:20 AM ORTHOTIST/PROSTHETIST Office Visit [facility] Primary Care [address] [place] [address] [place] [address] [address] documented as of this encounter Procedures Procedure Name Priority Date/Time Associated Diagnosis Comments MAMMO SCREEN BILAT W OR WO CAD Routine 07/28/2007 1:36 PM CDT documented in this encounter Results * MAMMO DIGITAL SCREEN BILAT (07/28/2007 1:36 PM CDT) Anatomical Region Laterality Modality Breast Bilateral Other 07/28/2007 1:36 PM CDT Narrative 07/29/2007 8:36 PM CDT [address] [address] Admit Date: 07/28/2007 RAY VIRK Sex: F Admit Prov: ROSE LOCKHART Date: 1960 Primary Care Prov: ROSE LOCKHART CMRN: [id number] [id number] [facility] Ordering Prov: ROSE LOCKHART Accession Number: [id number] Interpretation BILATERAL SCREENING DIGITAL MAMMOGRAMS WITH COMPUTER [...] Procedure Note Tim Zamarripa MD - 07/29/2007 [address] [place], [place] [address] Admit Date: 07/28/2007 RAY VIRK Sex: F Admit Prov: ROSE LOCKHART Date: 1960 Primary Care Prov: ROSE LOCKHART CMRN: [id number] [facility] [id number] IMAGING SERVICES Ordering Prov: ROSE LOCKHART Interpretation [...] mammogram documented in this encounter Care Teams Warp Starter Relationship Specialty Start Date End Date Isaias Baugh MD PCP - General Internal Medicine 08/16/14 documented as of this encounter
--- OUTSIDE RECORDS SUMMARY | 2024-07-18 00:02 | XMS_ITS | Encounter Summary ---
Author Organization [facility] Address [address] [place] [address] Care Team Providers Care Boat Mechanic Name Role Phone Isaias Baugh MD Primary Care Provider [phone] Encounter Details Date Type Department Care Team (Late st Contact Info) Description 09/16/2000 Outpatient Historical [facility] [address] [place] [address] Sher Lockhart MD NO ADDRESS ON FILE Social History Tobacco Use Types Packs/Day Years Used Date Smoking Tobacco: Never Assessed Comments Unknown Sex and Gender Information Value Date Recorded Sex Assigned at Not on file Legal Sex Female 5:06 AM REGIONAL BUSINESS MANAGER Gender Identity Not on file Sexual Orientation Not on file documented as of this encounter Plan of Treatment Upcoming Encounters Date Type Department Care Team (Late st Contact Info) Description 04/07/2025 9:20 AM REGIONAL BUSINESS MANAGER Office Visit [facility] [address] [facility] [address] [place] [phone] [place] [address] [place] [address] documented as of this encounter Visit Diagnoses Not on filedocumented in this encounter Care Teams Boat Mechanic Relationship Specialty Start Date End Date Isaias Baugh MD PCP - General Internal Medicine 08/16/14 documented as of this encounter
--- OUTSIDE RECORDS SUMMARY | 2024-07-18 00:02 | XMS_ITS | Encounter Summary ---
Author Organization [facility] Address [address] [place] [address] Care Team Providers Care Supervisor Forming Department Name Role Phone Isaias Baugh MD Primary Care Provider [phone] Encounter Details Date Type Department Care Team (Late st Contact Info) Description 08/09/2001 Outpatient Historical [facility] - [facility] [address] [facility] [address] [address] Sabrina Adlerh Social History Tobacco Use Types Packs/Day Years Used Date Smoking Tobacco: Never Assessed Comments Unknown Sex and Gender Information Value Date Recorded Sex Assigned at Not on file Legal Sex Female 5:06 AM STOCK COUNTER Gender Identity Not on file Sexual Orientation Not on file documented as of this encounter Plan of Treatment Upcoming Encounters Date Type Department Care Team (Late st Contact Info) Description 04/07/2025 9:20 AM STOCK COUNTER Office Visit [facility] Primary Care [facility] [address] [facility] [address] [place] [phone] [place] [address] [address] documented as of this encounter Visit Diagnoses Not on filedocumented in this encounter Care Teams Supervisor Forming Department Relationship Specialty Start Date End Date Isaias Baugh MD PCP - General Internal Medicine 08/16/14 documented as of this encounter
--- OUTSIDE RECORDS SUMMARY | 2024-07-18 00:02 | XMS_ITS | Encounter Summary ---
Author Organization [facility] Address [address] [place] [address] Care Team Providers Care Nurse Charge Rn Name Role Phone Isaias Baugh MD Primary Care Provider [phone] Encounter Details Date Type Department Care Team (Latest Contact Info) Description 08/15/2008 Outpatient Historical [facility] Rose Lockhart MD NO ADDRESS ON FILE Other Screening Mammogram Social History Tobacco Use Types Packs/Day Years Used Date Smoking Tobacco: Never Assessed Comments Unknown Sex and Gender Information Value Date Recorded Sex Assigned at Not on file Legal Sex Female 5:06 AM PIT CREW SUPPORT WORKER Gender Identity Not on file Sexual Orientation Not on file documented as of this encounter Plan of Treatment Upcoming Encounters Date Type Department Care Team (Late st Contact Info) Description 04/07/2025 9:20 AM PIT CREW SUPPORT WORKER Office Visit [facility] Primary Care [address] [place] [phone] [place] [address] [address] documented as of this encounter Procedures Procedure Name Priority Date/Time Associated Diagnosis Comments MAMMO SCREEN BILAT W OR WO CAD Routine 08/15/2008 11:12 AM CDT documented in this encounter Results * MAMMO DIGITAL SCREEN BILAT (08/15/2008 11:12 AM CDT) Anatomical Region Laterality Modality Breast Bilateral Other 08/15/2008 11:1 2 AM CDT Narrative 08/18/2008 5:18 PM CDT [place] [address] [place], [place] [address] Admit Date: 08/15/2008 RAY VIRK Sex: F Admit Prov: ROSE LOCKHART Date: 1960 Primary Care Prov: ROSE LOCKHART CMRN: [id number] [id number] Ordering Prov: ROSE LOCKHART Accession Number: [id number] Interpretation BILATERAL FULL FIELD DIGITAL SCREENING MAMMOGRAM [...] AMK Procedure Note Luana Haynes - 08/18/2008 [place] [address] [place], [place] [address] Admit Date: 08/15/2008 RAY VIRK Sex: F Admit Prov: ROSE LOCKHART Date: 1960 Primary Care Prov: ROSE LOCKHART CMRN: [id number] [id number] [facility] Ordering Prov: ROSE LOCKHART Interpretation [...] mammogram documented in this encounter Care Teams Nurse Charge Rn Relationship Specialty Start Date End Date Isaias Baugh MD PCP - General Internal Medicine 08/16/14 documented as of this encounter
--- OUTSIDE RECORDS SUMMARY | 2024-07-18 00:02 | XMS_ITS | Encounter Summary ---
Author Organization [facility] Address [address] [place] [address] Care Team Providers Care Rehabilitation Services Manager Name Role Phone Isaias Baugh MD Primary Care Provider Encounter Details Date Type Department Care Team (Late st Contact Info) Description 12/23/2000 Outpatient Historical [facility] [address] [place] [phone] Sher Lockhart MD NO ADDRESS ON FILE Social History Tobacco Use Types Packs/Day Years Used Date Smoking Tobacco: Never Assessed Comments Unknown Sex and Gender Information Value Date Recorded Sex Assigned at Not on file 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 Gender Identity Not on file Sexual Orientation Not on file documented as of this encounter Plan of Treatment Upcoming Encounters Date Type Department Care Team (Late st Contact Info) Description 04/07/2025 9:20 AM DRY MILL OPERATOR Office Visit [facility] [address] [place] [address] [place] [address] [address] [facility] [address] [place] [address] documented as of this encounter Visit Diagnoses Not on filedocumented in this encounter Care Teams Rehabilitation Services Manager Relationship Specialty Start Date End Date Isaias Baugh MD PCP - General Internal Medicine 08/16/14 documented as of this encounter
--- OUTSIDE RECORDS SUMMARY | 2024-07-18 00:02 | XMS_ITS | Encounter Summary ---
Author Organization [facility] Address [address] [place] [address] Care Team Providers Care Longwall Headgate Operator Name Role Phone Isaias Baugh MD Primary Care Provider [phone] Encounter Details Date Type Department Care Team (Late st Contact Info) Description 10/16/2000 Outpatient Historical 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 Gender Identity Not on file Sexual Orientation Not on file documented as of this encounter Plan of Treatment Upcoming Encounters Date Type Department Care Team (Late st Contact Info) Description 04/07/2025 9:20 AM DANCE HISTORIAN Office Visit [facility] [address] [facility] [address] [place] [address] [place] [address] [facility] [facility] [address] [place] [address] documented as of this encounter Visit Diagnoses Not on filedocumented in this encounter Care Teams Longwall Headgate Operator Relationship Specialty Start Date End Date Isaias Baugh MD PCP - General Internal Medicine 08/16/14 documented as of this encounter
--- OUTSIDE RECORDS SUMMARY | 2024-07-18 00:02 | XMS_ITS | Encounter Summary ---
Author Organization [facility] Address [address] [place] [address] Care Team Providers Care Boat Garnisher Name Role Phone Isaias Baugh MD Primary Care Provider [phone] Encounter Details Date Type Department Care Team (Late st Contact Info) Description 04/30/2001 Outpatient Historical 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 Gender Identity Not on file Sexual Orientation Not on file documented as of this encounter Plan of Treatment Upcoming Encounters Date Type Department Care Team (Late st Contact Info) Description 04/07/2025 9:20 AM CUSTOM TAILOR APPRENTICE Office Visit [facility] [address] [facility] [address] [place] [address] [place] [address] [facility] [address] [place] [address] documented as of this encounter Visit Diagnoses Not on filedocumented in this encounter Care Teams Boat Garnisher Relationship Specialty Start Date End Date Isaias Baugh MD PCP - General Internal Medicine 08/16/14 documented as of this encounter
== END 2024-07-18 00:15 | disposition home or self-care (01) ==
PROVIDERS: Emergency Provider Student in an Organized Health Care Education/Training Program
DX: S81.852A Open bite, left lower leg, initial encounter (principal); W54.0XXA Bitten by dog, initial encounter; Z23 Encounter for immunization
CPT/HCPCS: 90471; 90715; 99283; A9270

== ENCOUNTER 2024-10-03 15:18 | Emergency (ER) | payer BC, SELFPAY ==
[2024-10-03 15:26] VITALS: BP 163/62; PULSE 82; RESP 14; TEMP 36.9; O2SAT 100
--- NOTE | 2024-10-03 15:49 | ED.SKABFB ---
HPI - Skin/Abscess/Foreign Bdy General Chief complaint: Skin/Abscess/Foreign Body Stated complaint: bite on leg Time Seen by Provider: 10/03/24 15:50 Source: patient, RN notes reviewed and old records reviewed Mode of arrival: ambulatory Limitations: no limitations History of Present Illness HPI narrative: 64-year-old female presents to the [facility] with concerns for and sick bite that occurred or Thursday. Left lateral thigh redness, increased warmth. Related Data Allergies Allergy/AdvReac Type Severity Reaction Status Date / Time morphine AdvReac Mild Nausea and Verified 10/03/24 15:43 Vomiting Penicillins AdvReac Mild Nausea and Verified 10/03/24 15:43 Vomiting Review of Systems Review of Systems: All systems reviewed & are unremarkable except as noted in HPI and below Constitutional: Constitutional: Reports no additional constitutional complaints ENT: Reports system reviewed and no additional complaints, except as documented Cardiovascular: Cardiovascular: Reports no additional cardiovascular complaints, Denies chest pain and Denies dyspnea Respiratory: Respiratory: Reports no additional respiratory complaints, Denies chest congestion, Denies cough and Denies dyspnea Musculoskeletal: Musculoskeletal: Reports no additional musculoskeletal complaints Integumentary/Breasts: Skin/Breast: Reports as per HPI PMFSH Comments At the time of my signature, I reviewed and agree with the nursing past medical, surgical, social, and family history. There is no relevant family history pertinent to the patient complaint. Exam Const: General: cooperative, healthy appearing, comfortable, no acute distress, well developed, alert and well nourished Nutritional Appearance: well nourished Orientation/consciousness: patient oriented x3 Limitations: no limitations HENMT: Head: normal to inspection Eyes: General: appearance normal, both eyes and all related structures Alignment and Position: alignment normal Neck: Neck: normal visual inspection, full ROM, no lymphadenopathy and no meningeal signs Chest: Chest palpation & inspection: normal inspection of the chest Resp: Effort & Inspection: normal respiratory effort and able to speak in complete sentences Cardio: Rate: regular rate Skin: General skin exam: normal color and no rashes or lesions noted Other: 4 x 4 red area left lateral thigh. 1 x 1 raised area, yellowish drainage. Has increased warmth. Neuro: General: patient oriented x3, gait normal, moves all extremities and no meningeal signs Cognition (Neuro): normal cognition Speech: normal speech Gait exam (Neuro): Normal gait present Extrem: General: normal to inspection, full ROM, capillary refill normal and normal gait Psych: Appearance: grossly normal and well kempt Mental Status: mental status grossly normal Speech and movement: Normal speech and movement present and Clear speech present Affect: normal affect Attitude: cooperative Course Course Level of Care: Express Care Visit Vital Signs Vital signs: Vital Signs Temperature 98.5 F 10/03/24 15:26 Pulse Rate 82 10/03/24 15:26 Respiratory Rate 14 10/03/24 15:26 Blood Pressure 163/62 H 10/03/24 15:26 Pulse Oximetry 100 10/03/24 15:26 Oxygen Delivery Room Air 10/03/24 15:26 Temperature 98.5 F 10/03/24 15:26 Pulse Rate 82 10/03/24 15:26 Respiratory Rate 14 10/03/24 15:26 Blood Pressure 163/62 H 10/03/24 15:26 Pulse Oximetry 100 10/03/24 15:26 Oxygen Delivery Room Air 10/03/24 15:26 Reviewed MDM - Skin/Abscess/Foreign Bdy MDM Narrative Medical decision making narrative: Patient sitting in exam room. Patient is nontoxic, vitals are stable except for blood pressure is elevated. Patient presents with redness, swelling, increased warmth to the left lateral thigh. Culture collected, sent, covering with antibiotics Patient appropriate for outpatient treatment with close follow-up Discharge instructions reviewed with patient, as well as provided in writing per nursing staff. The instructions also include specific and strict return/GO TO THE ER as well as f/u information. All questions have been answered, and the patient deny any further questions with discharge and discharge plan. Some parts of this dictation were generated by voice recognition software and may contain typographical and/or grammatical inaccuracies. Differential Diagnosis Differential diagnosis: Likely abscess of skin or subcutaneous tissue, viral exanthem, urticaria, allergic reaction to drug, cellulitis, insect bites, impetigo and contact dermatitis Critical Care Time Critical Care Time Critical Care Time: No Discharge Plan Discharge Clinical Impression: Cellulitis Qualifiers: Site of cellulitis: extremity Site of cellulitis of extremity: lower extremity Laterality: left Qualified Code(s): L03.116 - Cellulitis of left lower limb Patient Disposition: Home Condition: Stable Instructions: Antibiotic Form Additional Instructions: Wash area twice daily, pat dry. Wash only with warm soapy water. Do not apply any bacitracin or Neosporin. Keep the dressing in place when draining. Try leaving open to air when it stops draining for 4-5 hours per day. When itching you can try taking Benadryl, applying ice packs Take antibiotic as prescribed Follow-up with primary care provider For worsening symptoms please proceed to the nearest emergency Patient Language: Polish Prescriptions: New sulfamethoxazole-trimethoprim [Bactrim DS] 800-160 mg tablet 1 tablet PO Q12H Qty: 14 0RF No Action acetaminophen 500 mg capsule 1,000 mg PO Q6H PRN (Reason: pain) Qty: 20 0RF Follow-up/Referrals: Amauri,Isaias [Other] Stand Alone Forms: Work/School Release IP Time of Disposition: 16:01
== END 2024-10-03 16:10 | disposition home or self-care (01) ==
PROVIDERS: Emergency Provider Nurse Practitioner
DX: L03.116 Cellulitis of left lower limb (principal)
CPT/HCPCS: 87070; 87075; 87205; 99213; G0463